=== PATIENT | male | born 1960 | race Caucasian/White ===

== ENCOUNTER 2020-09-05 09:47 | Inpatient (IN) | payer MEDICARE, OTHER, SELFPAY ==
[2020-09-05] VITALS (12 sets, daily range): BP systolic 110–157; BP diastolic 60–80; PULSE 56–100; RESP 16–18; TEMP 36.2–36.9; O2SAT 99–100; BMI 28.1; BMI 29.0
--- NOTE | 2020-09-05 10:32 | ED.GENADULT ---
HPI - General Adult General Chief complaint: Recheck/Abnormal Lab/Rx Stated complaint: ABNORMAL LABS Time Seen by Provider: 09/05/20 10:28 Source: patient Mode of arrival: ambulatory Limitations: no limitations History of Present Illness HPI narrative: 60 YEARS OLD MALE PRESENTED TO THE EMERGENCY DEPARTMENT. SHE HAS COMPLAINED OF WEAKNESS HE STATES THAT HE HAD THE OUTPATIENT BLOOD WORK IN THE CLINICALLY WAS TOLD THAT HE HAS A LOW H&H. DENIES ANY CHEST PAIN SHORTNESS OF BREATH FEVER ANY OTHER COMPLAINT Onset (ago): day(s) (2) Radiation: non-radiation Severity: moderate Severity scale (1-10): 1 Relieving factors: none Exacerbating factors: none Associated symptoms: denies other symptoms Treatments prior to arrival: none Related Data Home Medications Medication Instructions Recorded Confirmed aspirin 81 mg PO QAM 09/05/20 09/05/20 lisinopril 10 mg PO DAILY 09/05/20 09/05/20 omeprazole 20 mg PO Q2D 09/05/20 09/05/20 simvastatin 40 mg PO DAILY 09/05/20 09/05/20 Allergies Allergy/AdvReac Type Severity Reaction Status Date / Time No Known Allergies Allergy Verified 09/05/20 10:43 Review of Systems Review of Systems: Yes all other systems are reviewed and are negative Cardiovascular: Cardiovascular: Reports no additional cardiovascular complaints Respiratory: Respiratory: Reports no additional respiratory complaints Neurologic: Reports system reviewed and no additional complaints, except as documented PMFSH Past Medical History Attestation statement: The following information was validated with the patient. Medical History (Updated 09/05/20 @ 13:18 by JONA Jauregui) Bladder cancer Carotid stenosis CVA (cerebral vascular accident) High cholesterol HTN (hypertension) TIA (transient ischemic attack) Surgical History (Updated 09/05/20 @ 12:57 by JONA Jauregui) Hx of total cystectomy S/P carotid endarterectomy Family History Family History (Updated 09/05/20 @ 13:01 by JONA Jauregui) Father Dementia Mother Lung cancer Social History Social History Advance Directives: No Advance Directives Information Provided: Yes Physical Exam Vital Signs: Vital Signs: Vital Signs Temp Pulse Resp BP Pulse Ox 09/05/20 12:00 98.1 F 70 16 157/79 H 100 09/05/20 11:54 65 16 156/77 H 99 09/05/20 10:12 98.2 F 76 16 135/70 99 Body Mass Index 28.1 Const: General: cooperative and comfortable Orientation/consciousness: oriented to person and oriented to time Eyes: General: appearance normal, both eyes and all related structures Visual Campuzano: normal visual campuzano by confrontation Neck: Neck: Yes normal visual inspection and Yes full ROM Chest: Chest palpation & inspection: normal inspection of the chest and normal palpation of entire chest wall Resp: Effort & Inspection: normal respiratory effort and able to speak in complete sentences Cardio: Jugular venous distension: no JVD Palpation: normal PMI Rate: regular rate GI: Inspection: Yes normal to inspection and Yes other ( RECTAL EXAM, PERFORMED THE STOOLS ARE BROWN HEME-NEGATIVE) Skin: General skin exam: no rashes or lesions noted Neuro: General: oriented to person, oriented to time and gait normal Extrem: General: Yes normal to inspection and Yes full ROM Medical Decision Making Lab Data Result diagrams: 09/05/20 11:00 09/05/20 10:59 Labs: Lab Results 09/05/20 09/05/20 09/05/20 Range/Units 10:58 10:59 10:59 WBC (4.8-10.8) X10*3/uL RBC (4.60-5.80) X10*6/uL Hgb (14.0-18.0) g/dl Hct (42-52) % MCV (80-98) fL MCH (27.0-33.0) pg MCHC (31.0-36.0) g/dl RDW (11.0-16.0) % Plt Count (160-400) X10*3/uL MPV (9.4-12.4) fL Immature Gran % (Auto) (0.0-0.4) % Neut % (Auto) (45-73) % Lymph % (Auto) (20-40) % [place] % (Auto) (2-11) % Eos % (Auto) (0-4) % Baso % (Auto) (0-2) % Lymph # (Auto) (1.2-4.9) X10*3/uL [place] # (Auto) (0.1-1.2) X10*3/uL Eos # (Auto) (0.0-0.4) X10*3/uL Baso # (Auto) (0.0-0.2) X10*3/uL Abs Immat Gran (auto) (0.00-0.03) X10*3/uL Absolute Neuts (auto) (2.0-8.3) X10*3/uL Absolute Nucleated RBC (0.0-0.012) X10*3/uL Nucleated RBC % (auto) (0.0-0.2) /100WBC PT 12.0 (10.8-13.0) SEC INR 1.0 (0.9-1.1) APTT 30.4 (24.1-38.0) SEC Sodium 133 L (135-145) mmol/L Potassium 5.2 H (3.3-5.1) mmol/l Chloride 109 H (96-108) mmol/L Carbon Dioxide 16 L (22-29) mmol/L Anion Gap 13 (12-20) BUN 30 H (9-16) mg/dL Creatinine 1.39 (0.5-1.4) mg/dL Estim Creat Clear Calc 58.1 Estimated GFR 52 Random Glucose 76 (60-115) mg/dL Calcium 8.5 (8.4-10.2) mg/dL Ferritin 3 L (20-250) ng/mL Total Bilirubin 0.4 (0.0-1.0) mg/dL AST 24 (5-37) U/L ALT 15 (0-40) U/L Alkaline Phosphatase 62 (39-117) U/L Total Protein 6.8 (6.5-8.0) g/dL Albumin 4.2 (3.5-5.0) g/dL Vitamin B12 (200-900) pg/mL Folate (> or = 4.0) ng/mL Stool Occult Blood (NEG) Blood Type A Positive Antibody Screen NEGATIVE Crossmatch See Detail 09/05/20 09/05/20 09/05/20 Range/Units 10:59 11:00 11:43 WBC 4.1 L (4.8-10.8) X10*3/uL RBC 2.77 L (4.60-5.80) X10*6/uL Hgb 6.0 L* (14.0-18.0) g/dl Hct 19.8 L* (42-52) % MCV 71.5 L (80-98) fL MCH 21.7 L (27.0-33.0) pg MCHC 30.3 L (31.0-36.0) g/dl RDW 15.4 (11.0-16.0) % Plt Count 260 (160-400) X10*3/uL MPV 9.2 L (9.4-12.4) fL Immature Gran % (Auto) 0.5 H (0.0-0.4) % Neut % (Auto) 59.9 (45-73) % Lymph % (Auto) 25.7 (20-40) % [place] % (Auto) 9.0 (2-11) % Eos % (Auto) 4.4 H (0-4) % Baso % (Auto) 0.5 (0-2) % Lymph # (Auto) 1.1 L (1.2-4.9) X10*3/uL [place] # (Auto) 0.4 (0.1-1.2) X10*3/uL Eos # (Auto) 0.2 (0.0-0.4) X10*3/uL Baso # (Auto) 0.0 (0.0-0.2) X10*3/uL Abs Immat Gran (auto) 0.02 (0.00-0.03) X10*3/uL Absolute Neuts (auto) 2.5 (2.0-8.3) X10*3/uL Absolute Nucleated RBC 0.000 (0.0-0.012) X10*3/uL Nucleated RBC % (auto) 0.0 (0.0-0.2) /100WBC PT (10.8-13.0) SEC INR (0.9-1.1) APTT (24.1-38.0) SEC Sodium (135-145) mmol/L Potassium (3.3-5.1) mmol/l Chloride (96-108) mmol/L Carbon Dioxide (22-29) mmol/L Anion Gap (12-20) BUN (9-16) mg/dL Creatinine (0.5-1.4) mg/dL Estim Creat Clear Calc Estimated GFR Random Glucose (60-115) mg/dL Calcium (8.4-10.2) mg/dL Ferritin (20-250) ng/mL Total Bilirubin (0.0-1.0) mg/dL AST (5-37) U/L ALT (0-40) U/L Alkaline Phosphatase (39-117) U/L Total Protein (6.5-8.0) g/dL Albumin (3.5-5.0) g/dL Vitamin B12 296 (200-900) pg/mL Folate 10.5 (> or = 4.0) ng/mL Stool Occult Blood NEG (NEG) Blood Type Antibody Screen Crossmatch Critical Care Time Critical Care Time Critical Care Time: Yes Total Critical Care Time: 30 Attestation: blood transfusion X 2 Discharge Plan Discharge Clinical Impression: Anemia Qualifiers: Anemia type: iron deficiency Iron deficiency anemia type: unspecified iron deficiency Qualified Code(s): D50.9 - Iron deficiency anemia, unspecified Patient Disposition: Admitted As Inpatient Discharge Date/Time: 09/05/20 15:05
[2020-09-05 11:05] LABS: MANUAL DIFF FLAG NO
[2020-09-05 11:07] LABS: Basophils Percent Auto 0.5 % (0-2); Eosinophils Absolute Auto 0.2 X10*3/uL (0.0-0.4); Eosinophils Percent Auto 4.4 % (0-4); Imm Gran Abs Auto 0.02 X10*3/uL (0.00-0.03); Imm Gran Pct Auto 0.5 % (0.0-0.4); Lymphocytes Absolute Auto 1.1 X10*3/uL (1.2-4.9); Lymphocytes Percent Auto 25.7 % (20-40); Mean Corpuscular HGB Conc 30.3 g/dl (31.0-36.0); Mean Corpuscular Hemoglobin 21.7 pg (27.0-33.0); Mean Corpuscular Volume 71.5 fL (80-98); Mean Platelet Volume 9.2 fL (9.4-12.4); Monocytes Absolute Auto 0.4 X10*3/uL (0.1-1.2); Neutrophils Absolute Auto 2.5 X10*3/uL (2.0-8.3); Neutrophils Percent Auto 59.9 % (45-73); Platelet Count 260 X10*3/uL (160-400); Red Blood Count 2.77 X10*6/uL (4.60-5.80); Red Cell Distribution Width 15.4 % (11.0-16.0); White Blood Count 4.1 X10*3/uL (4.8-10.8)
[2020-09-05 11:11] LABS: Hematocrit 19.8 % (42-52)
[2020-09-05 11:16] LABS: Partial Thromboplastin Time 30.4 SEC (24.1-38.0)
--- NOTE | 2020-09-05 11:21 | XR_ITS ---
EXAMINATION: XR CHEST CLINICAL INFORMATION: Chest pain COMPARISON: CT abdomen and pelvis noncontrast 01/20/2016 TECHNIQUE: Portable upright AP view of the chest was obtained. FINDINGS: The lungs are clear. There is no pneumothorax, airspace consolidation, pleural reaction, or effusion. The heart is normal in size. The vascularity is normal. There is convexity right cardiophrenic angle consistent with areolar tissue on the CT abdomen 2016. The hilar contours and visualized bony structures are unremarkable. IMPRESSION: Unremarkable examination.
[2020-09-05 11:40] LABS: Alanine Aminotransferase 15 U/L (0-40); Albumin Level 4.2 g/dL (3.5-5.0); Alkaline Phosphatase 62 U/L (39-117); Anion Gap 13 (12-20); Aspartate Amino Transferase 24 U/L (5-37); Bilirubin Total 0.4 mg/dL (0.0-1.0); Blood Urea Nitrogen 30 mg/dL (9-16); Calcium 8.5 mg/dL (8.4-10.2); Carbon Dioxide 16 mmol/L (22-29); Chloride 109 mmol/L (96-108); Creatinine Clr Calc Pharmacy 58.1; Estimated Glomerular Filt Rate 52; Glucose Random 76 mg/dL (60-115); Potassium 5.2 mmol/l (3.3-5.1); Sodium 133 mmol/L (135-145); Total Protein 6.8 g/dL (6.5-8.0)
[2020-09-05 12:08] LABS: OBS Int Ctl Valid YES; OBS1 NEG (NEG)
--- NOTE | 2020-09-05 12:44 | P.HPIM_ITS ---
History of Present Illness Date of Service: 09/05/20 <JONA Jauregui - Last Filed: 09/05/20 18:27> Chief Complaint: abnormal labs <OJNA Jauregui - Last Filed: 09/05/20 18:27> this is a 60-year-old male who presented to the emergency department with abnormal labs. Patient had outpatient labs done and the results showed anemia so he was told to come to the emergency department for evaluation. H/ H was noted to be 6.0/19.8. The remainder of his labs were unremarkable. He denies any known history of anemia or history of blood transfusions. He denies hematemesis or rectal bleeding. He reports several weeks of generalized fatigue and dyspnea on exertion. Given symptomatic anemia the decision was made to admit him for further management. <JONA Jauregui - Last Filed: 09/05/20 18:27> Review of Systems Review of Systems: Yes all other systems are reviewed and are negative <JONA Jauregui - Last Filed: 09/05/20 18:27> Constitutional: Constitutional: Denies chills and Denies fever(s) <JONA Jauregui - Last Filed: 09/05/20 18:27> Cardiovascular: Cardiovascular: Denies chest pain and Reports dyspnea on exertion <JONA Jauregui - Last Filed: 09/05/20 18:27> Respiratory: Respiratory: Denies cough and Reports dyspnea on exertion <JONA Jauregui - Last Filed: 09/05/20 18:27> Gastrointestinal: Gastrointestinal: Denies abdominal pain <JONA Jauregui Last Filed: 09/05/20 18:27> [facility] Medical History: Medical History (Updated 09/05/20 @ 13:18 by JONA Jauregui) Bladder cancer Carotid stenosis CVA (cerebral vascular accident) High cholesterol HTN (hypertension) TIA (transient ischemic attack) <JONA Jauregui - Last Filed: 09/05/20 18:27> Family History: Family History (Updated 09/05/20 @ 13:01 by JONA Jauregui) Father Dementia Mother Lung cancer <JONA Jauregui Last Filed: 09/05/20 18:27> Surgical History: Surgical History (Updated 09/05/20 @ 12:57 by JONA Jauregui) Hx of total cystectomy S/P carotid endarterectomy <JONA Jauregui - Last Filed: 09/05/20 18:27> Social History: Social History Household Members Other:: Ex- Housing: House Do you presently have visiting nurse or other home services: No Smoking Status: Never smoker Second Hand Smoke Exposure: No Use of substances other than those prescribed or required for medical reasons: Yes Substance Use Type: Marijuana Substance Use Frequency: Occasionally Last Used Substance: Unknown Currently Displaying Signs/Symptoms of Drug Intoxication Withdrawal: No Any prior treatment program specific to substance use: No Have you been hit, kicked, punched, or otherwise hurt by someone within the past year? If so, by whom?: No Do you feel safe in your current relationship?: No Current Relationship Is there a partner from a previous relationship who is making you feel unsafe now?: No Are you made to feel afraid or neglected: No Advance Directives: No Advance Directives Information Provided: Yes Do you have thoughts of harming others: None Do you have a plan to hurt others: No Plan Recently lost weight without trying: No <JONA Jauregui - Last Filed: 09/05/20 18:27> Meds Allergies/Adverse reactions: Allergies Allergy/AdvReac Type Severity Reaction Status Date / Time No Known Allergies Allergy Verified 09/05/20 10:43 <JONA Jauregui - Last Filed: 09/05/20 18:27> Home medications: Home Medications Medication Instructions Recorded Confirmed Type aspirin 81 mg PO QAM 09/05/20 09/05/20 History lisinopril 10 mg PO DAILY 09/05/20 09/05/20 History omeprazole 20 mg PO Q2D 09/05/20 09/05/20 History simvastatin 40 mg PO DAILY 09/05/20 09/05/20 History <JONA Jauregui - Last Filed: 09/05/20 18:27> Physical Exam Vital Signs and Narrative: Vital Signs: Last Vital Signs Temp 98.1 F 09/05/20 12:00 Pulse 70 09/05/20 12:00 Resp 16 09/05/20 12:00 BP 157/79 H 09/05/20 12:00 Pulse Ox 100 09/05/20 12:00 Body Mass Index 28.1 <JONA Jauregui - Last Filed: 09/05/20 18:27> Const: Nutritional Appearance: well nourished <JONA Jauregui - Last Filed: 09/05/20 18:27> Orientation/consciousness: patient oriented x3 <JONA Jauregui - Last Filed: 09/05/20 18:27> HENMT: Head: Yes normocephalic and Yes atraumatic <JONA Jauregui - Last Filed: 09/05/20 18:27> Eyes: Sclerae: sclerae normal <JONA Jauregui - Last Filed: 09/05/20 18:27> Chest: Chest palpation & inspection: normal inspection of the chest <JONA Jauregui - Last Filed: 09/05/20 18:27> Resp: Effort & Inspection: normal respiratory effort and no respiratory distress <JONA Jauregui - Last Filed: 09/05/20 18:27> Auscultation: clear to auscultation bilaterally <JONA Jauregui - Last Filed: 09/05/20 18:27> Cardio: Rate: regular rate <JONA Jauregui - Last Filed: 09/05/20 18:27> Rhythm: regular rhythm <JONA Jauregui - Last Filed: 09/05/20 18:27> GI: Palpation (GI): Soft to palpation and nontender <JONA Jauregui - Last Filed: 09/05/20 18:27> Skin: General skin exam: no rashes or lesions noted <JONA Jauregui - Last Filed: 09/05/20 18:27> Neuro: General: patient oriented x3 <JONA Jauregui Last Filed: 09/05/20 18:27> Cranial nerves: Yes CN's II-XII intact bilaterally and Yes Bilaterally intact EOM present <JONA Jauregui - Last Filed: 09/05/20 18:27> Extrem: General: Yes normal to inspection <JONA Jauregui - Last Filed: 09/05/20 18:27> Results Labs Labs: Laboratory Tests 09/05/20 09/05/20 09/05/20 10:58 10:59 10:59 WBC RBC Hgb Hct MCV MCH MCHC RDW Plt Count MPV Immature Gran % (Auto) Neut % (Auto) Lymph % (Auto) [place] % (Auto) Eos % (Auto) Baso % (Auto) Lymph # (Auto) [place] # (Auto) Eos # (Auto) Baso # (Auto) Abs Immat Gran (auto) Absolute Neuts (auto) Absolute Nucleated RBC Nucleated RBC % (auto) PT 12.0 INR 1.0 APTT 30.4 Sodium 133 L Potassium 5.2 H Chloride 109 H Carbon Dioxide 16 L Anion Gap 13 BUN 30 H Creatinine 1.39 Estim Creat Clear Calc 58.1 Estimated GFR 52 Random Glucose 76 Calcium 8.5 Total Bilirubin 0.4 AST 24 ALT 15 Alkaline Phosphatase 62 Total Protein 6.8 Albumin 4.2 Stool Occult Blood Blood Type A Positive Antibody Screen NEGATIVE Crossmatch See Detail 09/05/20 09/05/20 11:00 11:43 WBC 4.1 L RBC 2.77 L Hgb 6.0 L* Hct 19.8 L* MCV 71.5 L MCH 21.7 L MCHC 30.3 L RDW 15.4 Plt Count 260 MPV 9.2 L Immature Gran % (Auto) 0.5 H Neut % (Auto) 59.9 Lymph % (Auto) 25.7 [place] % (Auto) 9.0 Eos % (Auto) 4.4 H Baso % (Auto) 0.5 Lymph # (Auto) 1.1 L [place] # (Auto) 0.4 Eos # (Auto) 0.2 Baso # (Auto) 0.0 Abs Immat Gran (auto) 0.02 Absolute Neuts (auto) 2.5 Absolute Nucleated RBC 0.000 Nucleated RBC % (auto) 0.0 PT INR APTT Sodium Potassium Chloride Carbon Dioxide Anion Gap BUN Creatinine Estim Creat Clear Calc Estimated GFR Random Glucose Calcium Total Bilirubin AST ALT Alkaline Phosphatase Total Protein Albumin Stool Occult Blood NEG Blood Type Antibody Screen Crossmatch <JONA Jauregui - Last Filed: 09/05/20 18:27> Assessment and Plan (1) Symptomatic anemia: Status: Acute <JONA Jauregui - Last Filed: 09/05/20 18:27> this 60-year-old male with history of hypertension, hyperlipidemia, bladder cancer status post total cystectomy who presents to the emergency department with abnormal labs found to have anemia symptomatic anemia H/H 6.9/24.3 on 08/29/[address] [facility] no active bleeding, occult blood negative - 2 units of RBCs ordered by ED - follow CBC - check iron studies h/o cva hold asa, continue statin HTN -Continue lisinopril DVT ppx - boots Code status - full This case was discussed with Dr. Buckley <JONA Jauregui - Last Filed: 09/05/20 18:27>
[2020-09-05 13:07] LABS: Ferritin 3 ng/mL (20-250)
[2020-09-05 13:28] LABS: Folate 10.5 ng/mL (> or = 4.0); Vitamin B12 296 pg/mL (200-900)
[2020-09-05] MEDS: 0.9 % Sodium Chloride Flush 3 ML SYRINGE IVFLUSH (16:04)
--- NOTE | 2020-09-05 17:08 | PC.NURSE ---
PT ARRIVED TO THE UNIT FROM ED AT 1530. PT ADMITTED FOR SYMPTOMATIC ANEMIA. 2 UNITS PRBC ORDERED. CONSENT FOR BLOOD OBTAINED. FIRST UNIT OF PRBC CURRENTLY INFUSING. PT IS A+OX4. CALM, COOPERATIVE. NO SOB, NO DIZZINESS AT THIS TIME. LUNG SOUNDS CLEAR. PT ON ROOM AIR. +BS X4Q. PT HAS A HISTORY OF BLADDER CANCER AND SELF-CATHETERIZES. #14 HUNGARIAN CATH KIT LEFT AT BEDSIDE (OK'D BY ). PT DENIES PAIN AT THIS TIME. INDEPENDENT WITH AMBULATION/TRANSFERS. STEADY ON FEET. SEQUENTIALS APPLIED TO BILATERAL LOWER EXTREMITIES. LEFT FOOT NOTED TO HAVE 2+ EDEMA; PT STATES THIS IS NOT A NEW FINDING AND THAT HIS LEFT FOOT IS ALWAYS SWOLLEN . PT ORIENTED TO UNIT. CALL GODFREY IN REACH. PT WITH NO QUESTIONS OR CONCERNS AT THIS TIME. WILL CONTINUE TO MONITOR.
[2020-09-05] MEDS: Flu Vacc QS2020-21(6mos up)/PF 0.5 ML SYRINGE IM (18:06)
[2020-09-05] MEDS: Atorvastatin Calcium 20 MG TABLET PO (20:49)
[2020-09-06] VITALS (9 sets, daily range): BP systolic 110–141; BP diastolic 60–73; PULSE 56–65; RESP 16–20; TEMP 36–37; O2SAT 98–99; BMI 28.3
[2020-09-06] MEDS: 0.9 % Sodium Chloride Flush 3 ML SYRINGE IVFLUSH ×3 (05:51→16:42)
[2020-09-06 06:52] LABS: Hematocrit 25.5 % (42-52); Hemoglobin 7.9 g/dl (14.0-18.0); Mean Corpuscular Hemoglobin 23.3 pg (27.0-33.0); Mean Corpuscular Volume 75.2 fL (80-98); Platelet Count 290 X10*3/uL (160-400); Red Blood Count 3.39 X10*6/uL (4.60-5.80); Red Cell Distribution Width 18.1 % (11.0-16.0)
[2020-09-06 07:18] LABS: Anion Gap 13 (12-20); Blood Urea Nitrogen 28 mg/dL (9-16); Calcium 8.6 mg/dL (8.4-10.2); Carbon Dioxide 19 mmol/L (22-29); Chloride 109 mmol/L (96-108); Creatinine Clr Calc Pharmacy 64.3; Estimated Glomerular Filt Rate 58; Glucose Random 89 mg/dL (60-115); Potassium 5.1 mmol/l (3.3-5.1); Sodium 136 mmol/L (135-145)
--- NOTE | 2020-09-06 11:21 | P.CNGI_ITS ---
History of Present Illness Data of Consult Service Date: 09/06/20 Requesting physician: Neeta Buckley Primary Care Provider: Unknown Physician HPI Reason for consult: Anemia 60-year-old male who I am asked to see for assessment for iorn def anemia. He had routine labs and HGB was found to be 6 g/dl. He did admit to lethargy and fatigue but denied lightheadedness. He does endorse intermittent dark stools over the last one month or so. denies fresh rectal bleeding, no hemturia or epistaxis, heartburn, nausea or vomiting. appetite normal, weight stable, no abdmonial pain-no nsaid use except for baby aspirin due to hx of cervical art stenosis. HE has been receiving PRBC trnasfusion--feels better today Of note he has PET-CT pending this week for Ix of bladder and chest nodules given hx of bladder cancer s/p bladder cystectomy and reconstruction with small bowel 2013 He said he had colonoscopy end of last year at [facility] with small polyp removed otherwise normal study. Review of Systems Review of Systems: Yes all other systems are reviewed and are negative Neurologic: Reports system reviewed and no additional complaints, except as documented PMFSH Past Medical History Medical History Bladder cancer Carotid stenosis CVA (cerebral vascular accident) High cholesterol HTN (hypertension) TIA (transient ischemic attack) Functional capacity: independent ambulation Family History Family History Father Dementia Mother Lung cancer Surgical History Surgical History Hx of total cystectomy S/P carotid endarterectomy Social History Social History Household Members Other:: Ex- Housing: House Do you presently have visiting nurse or other home services: No Smoking Status: Never smoker Second Hand Smoke Exposure: No Use of substances other than those prescribed or required for medical reasons: Yes Substance Use Type: Marijuana Substance Use Frequency: Occasionally Last Used Substance: Unknown Currently Displaying Signs/Symptoms of Drug Intoxication Withdrawal: No Any prior treatment program specific to substance use: No Have you been hit, kicked, punched, or otherwise hurt by someone within the past year? If so, by whom?: No Do you feel safe in your current relationship?: No Current Relationship Is there a partner from a previous relationship who is making you feel unsafe now?: No Are you made to feel afraid or neglected: No Advance Directives: No Advance Directives Information Provided: Yes Do you have thoughts of harming others: None Do you have a plan to hurt others: No Plan Recently lost weight without trying: No service: Yes Current occupational status: retired [employer] Allergies Allergy/AdvReac Type Severity Reaction Status Date / Time No Known Allergies Allergy Verified 09/05/20 10:43 Home Medications Medication Instructions Recorded Confirmed Type lisinopril 10 mg PO DAILY 09/05/20 09/05/20 History omeprazole 20 mg PO Q2D 09/05/20 09/05/20 History simvastatin 40 mg PO DAILY 09/05/20 09/05/20 History Physical Exam Vital Signs: Vital Signs: Vital Signs Temp Pulse Resp BP Pulse Ox 09/06/20 11:16 97.5 F 64 20 116/67 98 09/06/20 07:45 97.6 F 58 20 127/60 98 09/06/20 03:30 98.5 F 65 18 129/63 98 09/06/20 00:00 98.6 F 63 18 117/61 99 09/05/20 21:57 98.4 F 60 18 111/71 09/05/20 18:43 97.4 F 61 18 141/63 H 09/05/20 18:28 97.9 F 70 18 149/67 H 09/05/20 17:50 97.9 F 65 18 147/80 H 09/05/20 16:52 97.2 F 56 16 155/74 H 09/05/20 16:30 97.2 F 62 16 143/66 H 09/05/20 15:50 97.6 F 100 18 110/80 100 09/05/20 15:40 97.4 F 61 18 139/65 100 09/05/20 14:16 56 16 135/60 99 09/05/20 12:00 98.1 F 70 16 157/79 H 100 09/05/20 11:54 65 16 156/77 H 99 Body Mass Index 28.3 Const: General: cooperative and comfortable Nutritional Appearance: well nourished Orientation/consciousness: oriented to person, oriented to time and patient oriented x3 HENMT: Head: Yes normocephalic and Yes atraumatic Eyes: General: appearance normal, both eyes and all related structures Visual Watson: normal visual watson by confrontation Sclerae: sclerae normal Neck: Neck: Yes normal visual inspection and Yes full ROM Chest: Chest palpation & inspection: normal inspection of the chest and normal palpation of entire chest wall Resp: Effort & Inspection: normal respiratory effort, able to speak in complete sentences and no respiratory distress Auscultation: clear to auscultation bilaterally Cardio: Jugular venous distension: no JVD Palpation: normal PMI Rate: regular rate Rhythm: regular rhythm GI: Inspection: Yes normal to inspection Palpation (GI): Soft to palpation and nontender Skin: General skin exam: no rashes or lesions noted Neuro: General: oriented to person, oriented to time and patient oriented x3 Cranial nerves: Yes CN's II-XII intact bilaterally and Yes Bilaterally intact EOM present Extrem: General: Yes normal to inspection and Yes full ROM Results Labs CBC & Chem 7: 09/06/20 15:55 09/06/20 05:45 Labs: Short CBC 09/06/20 Range/Units 05:45 WBC 9.0 (4.8-10.8) X10*3/uL Hgb 7.9 L D (14.0-18.0) g/dl Hct 25.5 L D (42-52) % Plt Count 290 (160-400) X10*3/uL BMP 09/05/20 09/06/20 10:59 05:45 Sodium 133 L 136 Potassium 5.2 H 5.1 Chloride 109 H 109 H Carbon Dioxide 16 L 19 L BUN 30 H 28 H Creatinine 1.39 1.26 Calcium 8.5 8.6 Liver Function 09/05/20 Range/Units 10:59 Total Bilirubin 0.4 (0.0-1.0) mg/dL AST 24 (5-37) U/L ALT 15 (0-40) U/L Alkaline Phosphatase 62 (39-117) U/L Albumin 4.2 (3.5-5.0) g/dL Assessment and Plan (1) Symptomatic anemia: Status: Acute 1/ Iron deficiency anemia with intermittent melenic stools per history, hx of chronic aspirin use, but on PPI at baseline, appropriate increment in HGB with PRBC. He had colonoscopy recently highest likelihood of pathology in upper GI tract, ddx; PUD, gastritis, neoplasia, AVM, esophagitis PLAN: 1/ discussed in patient EGD +/- colonoscopy vs early o/p endoscopy or deferring to her GI at [facility], he wants to get all his lung testing and CT-PET done first which is this week but would like endoscopy done at [place] as o/p 2/ Will touch base with my office on Tuesday, and see if can get EGD +/- colonoscopy this Tuesday or following week, but he would like to go home today, advised to come back MELIZA if any change, worsening melena
--- NOTE | 2020-09-06 11:29 | PM.DS ---
DS: Providers Provider Date of admission: 09/05/20 12:43 Primary care physician: Unknown Physician Consults: 09/06/20 07:57 Consult to Gastroenterology Routine Consulting Provider: Liliana Hansen Reason for consultation: Iron deficiency anemia Has provider been notified: No DS: Diagnosis Discharge Diagnosis (1) Symptomatic anemia: Status: Acute DS: Summary Hospital Course Hospital Course: 60-year-old male who presented to the emergency department with abnormal labs. Patient had outpatient labs done and the results showed anemia so he was told to come to the emergency department for evaluation. H/ H was noted to be 6.0/19.8. The remainder of his labs were unremarkable. He denies any known history of anemia or history of blood transfusions. He denies hematemesis or rectal bleeding. He reports several weeks of generalized fatigue and dyspnea on exertion. Given symptomatic anemia the decision was made to admit him for further management. Hospital course: He was transfused 3 units of RBC with improved in hemoglobin. Labs shows low iron store with low MCV and therefore iron deficiency anemi yet no source of bleed. His symptoms have resolved. Advised to stop aspirin. GI recommends outpatient work up with EGD and Colonoscopy which will be done within a week. Time Spent with Patient Time attestation: Total time spent providing and/or coordinating discharge services: Physical Exam Vital Signs: Vital Signs: Vital Signs Temp Pulse Resp BP Pulse Ox 09/06/20 11:16 97.5 F 64 20 116/67 98 09/06/20 07:45 97.6 F 58 20 127/60 98 09/06/20 03:30 98.5 F 65 18 129/63 98 09/06/20 00:00 98.6 F 63 18 117/61 99 09/05/20 21:57 98.4 F 60 18 111/71 09/05/20 18:43 97.4 F 61 18 141/63 H 09/05/20 18:28 97.9 F 70 18 149/67 H 09/05/20 17:50 97.9 F 65 18 147/80 H 09/05/20 16:52 97.2 F 56 16 155/74 H 09/05/20 16:30 97.2 F 62 16 143/66 H 09/05/20 15:50 97.6 F 100 18 110/80 100 09/05/20 15:40 97.4 F 61 18 139/65 100 09/05/20 14:16 56 16 135/60 99 09/05/20 12:00 98.1 F 70 16 157/79 H 100 09/05/20 11:54 65 16 156/77 H 99 Body Mass Index 28.3 Constitutional Awake and Alert, No apparent distress Neck Supple, No lymphadenopathy Cardiovascular RRR, No M/R/G, S1 S2, No S3 S4, No pedal edema Respiratory Lungs clear, No respiratory distress Gastrointestinal Non tender, Non-distended Skin No rash Neurological Alert & oriented x3 Psychological Appropriate affect DS: Data Data Completed and Pending Labs on day of discharge: Labs from last 24 hours 09/06/20 09/06/20 09/05/20 05:45 05:45 11:43 WBC 9.0 RBC 3.39 L D Hgb 7.9 L D Hct 25.5 L D MCV 75.2 L MCH 23.3 L MCHC 31.0 RDW 18.1 H Plt Count 290 MPV 10.0 Absolute Nucleated RBC 0.000 Nucleated RBC % (auto) 0.0 Sodium 136 Potassium 5.1 Chloride 109 H Carbon Dioxide 19 L Anion Gap 13 BUN 28 H Creatinine 1.26 Estim Creat Clear Calc 64.3 Estimated GFR 58 Random Glucose 89 Calcium 8.6 Ferritin Total Bilirubin AST ALT Alkaline Phosphatase Total Protein Albumin Vitamin B12 Folate Stool Occult Blood NEG Blood Type Antibody Screen Crossmatch 09/05/20 09/05/20 09/05/20 10:59 10:59 10:59 WBC RBC Hgb Hct MCV MCH MCHC RDW Plt Count MPV Absolute Nucleated RBC Nucleated RBC % (auto) Sodium 133 L Potassium 5.2 H Chloride 109 H Carbon Dioxide 16 L Anion Gap 13 BUN 30 H Creatinine 1.39 Estim Creat Clear Calc 58.1 Estimated GFR 52 Random Glucose 76 Calcium 8.5 Ferritin 3 L Total Bilirubin 0.4 AST 24 ALT 15 Alkaline Phosphatase 62 Total Protein 6.8 Albumin 4.2 Vitamin B12 296 Folate 10.5 Stool Occult Blood Blood Type A Positive Antibody Screen NEGATIVE Crossmatch See Detail Discharge Plan Discharge Anticipated Discharge Date/Time: 09/06/20 11:44 Patient Disposition: Home, Self-Care Referrals: Physician,Unknown [Primary Care Provider] - Discharge Medications: New omeprazole 40 mg capsule,delayed release(DR/EC) 40 mg PO DAILY 56 Days Qty: 56 RF: 0 ferrous sulfate 325 mg (65 mg iron) tablet 325 mg PO BID Qty: 30 RF: 0 Continued simvastatin 40 mg tablet 40 mg PO DAILY RF: 0 lisinopril 10 mg tablet 10 mg PO DAILY RF: 0 omeprazole 20 mg capsule,delayed release(DR/EC) 20 mg PO Q2D RF: 0 Discontinued aspirin 81 mg tablet,delayed release (DR/EC) 81 mg PO QAM RF: 0 Discharge Orders: Discharge Order (Routine); Ordered 09/06/20 Ordered By: Bony Haskins Diet: advance to your usual diet Activity on Discharge: As tolerated Discharge Date/Time: 09/06/20 17:38 Visit Report Forms: Patient Portal Discharge page Care Plan Goals: To fiure out why you have anemia Health Concerns: Bleeding from unknown source Plan of Treatment: You will need to have colonoscopy and EGD, take Iron and priolosec as recommended.
[2020-09-06 12:10] LABS: Iron 422 mcg/dL (45-160); Total Iron Binding Capacity < 439 mcg/dL (228-428); Unsaturated Iron Binding < 17 ug/dL
[2020-09-06 16:13] LABS: Hematocrit 28.1 % (42-52); Mean Corpuscular Hemoglobin 24.5 pg (27.0-33.0); Mean Corpuscular Volume 76.6 fL (80-98); Mean Platelet Volume 9.4 fL (9.4-12.4); Platelet Count 267 X10*3/uL (160-400); Red Blood Count 3.67 X10*6/uL (4.60-5.80); Red Cell Distribution Width 18.7 % (11.0-16.0); White Blood Count 5.9 X10*3/uL (4.8-10.8)
--- NOTE | 2020-09-06 16:21 | MHC.CM.PN ---
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 PT DENIES HAVING ANY SERVICES OR DME OTHER THAN CATHETER SUPPLIES THAT ARE DELIVERED TO HIM. PT REPORTS HE DID HAVE A PCP THAT RETIRED SO IS UNSURE WHO HIS NEW PROVIDER WILL BE BUT HE GOES TO [facility]. 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 CURRENT DC PLAN IS HOME WITH NO SERVICES PT WILL ARRANGE RIDE AT DC
== END 2020-09-06 17:38 | disposition home or self-care (01) | DRG 812 ==
LOC: HO.ED 11:45 → HO.IMC 13:10
PROVIDERS: Physician Assistant Medical; Admitting Provider Internal Medicine; Emergency Provider Emergency Medicine; Visit Provider Internal Medicine
DX: D50.9 Iron deficiency anemia, unspecified (principal); E78.00 Pure hypercholesterolemia, unspecified; Z23 Encounter for immunization; Z85.51 Personal history of malignant neoplasm of bladder; Z86.73 Personal history of transient ischemic attack (TIA), and cerebral infarction without residual deficits; Z79.899 Other long term (current) drug therapy
CPT/HCPCS: 36415; 71045; 80048; 80053; 82272; 82607; 82728; 82746; 83540; 85025; 85027; 85610; 85730; 86850; 86900; 86901; 86920; 86923; 90686; 99284; 99291; J2405; P9016

== ENCOUNTER 2020-09-11 10:32 | Day surgery (SDC) | payer MEDICARE, OTHER, SELFPAY ==
--- NOTE | 2020-09-10 13:19 | HO.ANESPROP2 ---
HPI - Anesthesia Eval Consult details Narrative: 60yo M for EGD and Colonoscopy [facility] [place]20 with acute symptomatic anemia. S/p 3 units PRBC. PMFSH Past Medical History Medical History Bladder cancer Carotid stenosis CVA (cerebral vascular accident) High cholesterol HTN (hypertension) TIA (transient ischemic attack) Family History Family History Father Dementia Mother Lung cancer Surgical History Surgical History Hx of total cystectomy S/P carotid endarterectomy Social History Social History Housing: House Smoking Status: Never smoker Second Hand Smoke Exposure: No Use of substances other than those prescribed or required for medical reasons: No Substance Use Type: Marijuana Advance Directives: Yes Advance Directives Information Provided: Yes Advance Directives Date on File: 09/11/20 Recently lost weight without trying: No service: Yes Current occupational status: retired [employer] Allergies Allergy/AdvReac Type Severity Reaction Status Date / Time No Known Allergies Allergy Verified 09/05/20 10:43 Home Medications Medication Instructions Recorded Confirmed Type lisinopril 10 mg PO DAILY 09/05/20 09/05/20 History omeprazole 20 mg PO Q2D 09/05/20 09/05/20 History simvastatin 40 mg PO DAILY 09/05/20 09/05/20 History Exam Exam Date and Time: September 10, 2020 1319 Assessment and Plan Assessment Anesthesia Assessment: Chart Reviewed
[2020-09-11 10:38] VITALS: BMI 27.3
--- NOTE | 2020-09-11 10:45 | HO.ANESPROP2 ---
[facility] Past Medical History Medical History Bladder cancer Carotid stenosis CVA (cerebral vascular accident) High cholesterol HTN (hypertension) TIA (transient ischemic attack) Family History Family History Father Dementia Mother Lung cancer Surgical History Surgical History Hx of total cystectomy S/P carotid endarterectomy Social History Social History Housing: House Smoking Status: Never smoker Second Hand Smoke Exposure: No Use of substances other than those prescribed or required for medical reasons: No Substance Use Type: Marijuana Advance Directives: Yes Advance Directives Information Provided: Yes Advance Directives Date on File: 09/11/20 Recently lost weight without trying: No service: Yes Current occupational status: retired Meds Allergies Allergy/AdvReac Type Severity Reaction Status Date / Time No Known Allergies Allergy Verified 09/05/20 10:43 Home Medications Medication Instructions Recorded Confirmed Type lisinopril 10 mg PO DAILY 09/05/20 09/05/20 History omeprazole 20 mg PO Q2D 09/05/20 09/05/20 History simvastatin 40 mg PO DAILY 09/05/20 09/05/20 History Exam Exam Date and Time: September 11, 2020 1045 Height,Weight and Vital Signs: Height 5 ft 8 in Weight 81.647 kg Assessment and Plan Final Anesthetic Review NPO: Yes ASA Class: IV Final Preanesthetic Review: No Changes in Pt Med Stat, Meds/Allgs Chart Reviewed, Consent Obtained/Reviewed and Anes Risks/Benef Reviewed Patient Risk: High Procedure Risk: Low Anesthetic Plan Anesthetic Plan: MAC: Disposition: Standard PACU
[2020-09-11 10:46] VITALS: BP 105/76; PULSE 71; RESP 18; TEMP 36.4; O2SAT 98
[2020-09-11] MEDS: Lactated Ringers 1,000 ML 100 ML IVCONT (11:06)
--- NOTE | 2020-09-11 11:22 | MHC.SHP ---
Pre-Procedural Eval Section A The patient is an INPATIENT: No The History & Physical has been completed within 30 days and I have reviewed it.: Yes Section B Chief Complaint: anemia Allergies: Allergies Allergy/AdvReac Type Severity Reaction Status Date / Time No Known Allergies Allergy Verified 09/05/20 10:43 Plan Diagnosis/Plan: Unchanged Patient has been examined and remains a candidate for the planned procedure
--- NOTE | 2020-09-11 11:23 | PM.OP ---
Brief Operative Note Date of procedure: 09/11/20 Pre-op diagnosis: irond ef anemia Post-op diagnosis: same Procedure: see op note Surgeon: Liliana Hansen MD Anesthesia: MAC Estimated blood loss (mL): 0 Condition: stable Disposition: PACU
--- NOTE | 2020-09-11 11:23 | W.PM.OPN ---
Operative Note Operative Note Narrative: Operative Information Procedure Description: EGD, Colonoscopy FLEXIBLE TRANSORAL UPPER GASTROINTESTINAL ENDOSCOPY AND COLONOSCOPY PROCEDURE NOTE UPPER ENDOSCOPY Consent: Indications for the procedure and potential complications of bleeding, perforation, reaction to medications and missed diagnosis were discussed with the patient and informed consent was obtained. Instrument: Olympus GIF H 190 J mid size upper endoscope Monitoring: Vital signs and clinical assessment, continuous EKG monitoring, Pulse oximetry, Carbon Dioxide monitoring and blood pressure monitoring were done throughout the procedure. Procedure: The patient was placed in the left lateral decubitis position and pre-procedure medications were administered and a bite block was placed. The endoscope was inserted into the mouth and advanced under direct vision to the third part of duodenum. A careful inspection was made as the upper endoscope was withdrawn including a retroflexed examination of the proximal stomach; Findings and interventions are described below. Findings: Larynx:normal Esophagus: GE junction at 40 cm, diaphragm hiatus at 40 cm, mild esophagitis at GEJ with irregular Z line, bx taken Stomach: Normal mucosa except for an erythematous area in the fundus which was biopsied. Grade 2 flap valve on retroflexed examination of the cardia. Duodenum: Normal bulb and descending duodenum, bx taken no blood seen, no ulcers or masses Intervention: Biopsies as noted above COLONOSCOPY Instrument: Olympus variable stiffness pediatric scope 190L Colonoscopy Monitoring: Vital signs and clinical assessment, continuous EKG monitoring, Pulse oximetry, Carbon Dioxide monitoring and blood pressure monitoring were done throughout the procedure. Colon withdrawal time was 10 minutes. Procedure: The patient was placed in the left lateral decubitis position and pre-procedure medications were administered. After a digital rectal examination of the ano-rectum, the video colonoscope was inserted into the rectum and advanced through the colon to the cecum/TI. The colonoscope was slowly withdrawn in a retrograde panoramic fashion and the colon mucosa was carefully examined including a retroflexed view of the rectum. Findings and interventions are described below. Procedure Difficulty:easy Findings: normal stool seen in areas, no bleeding or melena few scattered small diverticula thru out the colon Terminal Ileum-normal Cecum: slightly granular with nodularity, bx taken Ascending Colon: normal Transverse Colon -normal Descending Colon:normal Sigmoid Colon: normal Rectum: Retroflexion with moderate sized internal hemorrhoids, grade I Anorectum - normal Colon preparation: [place] Bowel Preparation Scale Right colon; 3 Transverse colon: 2 Left colon; 2 (0 = Unprepared colon segment with mucosa not seen due to solid stool that cannot be cleared. 1 = Portion of mucosa of the colon segment seen, but other areas of the colon segment not well seen due to staining, residual stool and/or opaque liquid. 2 = Minor amount of residual staining, small fragments of stool and/or opaque liquid, but mucosa of colon segment seen well. 3 = Entire mucosa of colon segment seen well with no residual staining, small fragments of stool or opaque liquid) Impression and Post Procedure Diagnosis: Endoscopy Findings: focal gastritis esophagitis Colonoscopy Findings: internal hemorrhoids diverticular disease Plan: Await Pathology results Repeat Colonoscopy in 5 years or earlier if clinically indicated High fiber diet leaflet avoid straining at stool, epsom salts and sitz bath prn, anusol supps or cream prn video capsule study of small bowel Above findings were reviewed with the patient and relevant handouts were provided if indicated.
[2020-09-11 12:12] VITALS: BP 92/47; PULSE 65; RESP 18; TEMP 35.9; O2SAT 96
[2020-09-11 12:27] VITALS: BP 97/57; PULSE 57; RESP 15; TEMP 35.9; O2SAT 99
--- NOTE | 2020-09-11 12:56 | HO.POSTANES ---
Post Anesthesia Evaluation Post Anesthesia Evaluation Vital Signs: Vital Signs Temp Pulse Resp BP Pulse Ox 09/11/20 12:27 96.6 F L 57 15 97/57 L 99 09/11/20 12:12 96.6 F L 65 18 92/47 L 96 09/11/20 10:46 97.5 F 71 18 105/76 98 Anesthesia: Monitored Mental Status: Awake Pain Control: Satisfactory Nausea/Vomiting: None Hydration: Adequate Anesthesia-Related Issues: No Anes. Related Issues
== END 2020-09-11 13:14 | disposition home or self-care (01) ==
PROVIDERS: Visit Provider Internal Medicine Gastroenterology
PROC: (CPT 45380; principal; 2020-09-11 11:50)
DX: D64.9 Anemia, unspecified (principal); K57.30 Diverticulosis of large intestine without perforation or abscess without bleeding; K64.0 First degree hemorrhoids; K29.70 Gastritis, unspecified, without bleeding; K20.90 Esophagitis, unspecified without bleeding; K44.9 Diaphragmatic hernia without obstruction or gangrene; E78.00 Pure hypercholesterolemia, unspecified; Z85.51 Personal history of malignant neoplasm of bladder; Z86.73 Personal history of transient ischemic attack (TIA), and cerebral infarction without residual deficits; I10 Essential (primary) hypertension; Z79.899 Other long term (current) drug therapy
CPT/HCPCS: 45380; 43239; 88305; 88342

== ENCOUNTER → 2020-09-26 07:57 | Outpatient (BNVA) | payer MEDICARE, SELFPAY | PROVIDERS: Visit Provider Internal Medicine Gastroenterology | DX: Z76.89 Persons encountering health services in other specified circumstances (principal) | CPT/HCPCS: 91110 ==

== ENCOUNTER → 2020-10-27 14:01 | Outpatient (BNVA) | payer MEDICARE, SELFPAY | PROVIDERS: Visit Provider Surgery | DX: K40.90 Unilateral inguinal hernia, without obstruction or gangrene, not specified as recurrent (principal) | CPT/HCPCS: 99202 ==

== ENCOUNTER 2020-11-25 08:32 | Day surgery (SDC) | payer MEDICARE, SELFPAY ==
[2020-11-17 10:44] VITALS: BMI 27.6
[2020-11-24 09:28] VITALS: BMI 27.6
--- NOTE | 2020-11-24 10:44 | P.CONAN_ITS ---
Documented by User: Tika Correa 11/24/20 10:52 HPI - Anesthesia Eval Consult details Narrative: 60yo M for Hernia Repair Inguinal Laproscopic with mesh s/p EGD and Colonosocpy 09/11/20, no issue [facility] Past Medical History Medical History Bladder cancer Carotid stenosis CVA (cerebral vascular accident) High cholesterol HTN (hypertension) Lab test negative for COVID-19 virus Left inguinal hernia Lung nodules TIA (transient ischemic attack) Family History Family History Father Dementia Mother Lung cancer Surgical History Surgical History H/O colonoscopy History of esophagogastroduodenoscopy (EGD) Hx of total cystectomy S/P carotid endarterectomy Social History Social History Housing: House Smoking Status: Never smoker Second Hand Smoke Exposure: No Use of substances other than those prescribed or required for medical reasons: Yes Substance Use Type: Marijuana Advance Directives: Yes Advance Directives Information Provided: No Advance Directives on File: Yes Advance Directives Date on File: 09/11/20 service: Yes Current occupational status: retired Meds Allergies Allergy/AdvReac Type Severity Reaction Status Date / Time No Known Allergies Allergy Verified 11/25/20 08:50 Home Medications Medication Instructions Recorded Confirmed Type lisinopril 10 mg PO DAILY 09/05/20 11/17/20 History omeprazole 20 mg PO Q2D 09/05/20 09/05/20 History simvastatin 40 mg PO DAILY 09/05/20 11/17/20 History aspirin 1 tab PO QAM 11/17/20 11/17/20 History Exam Exam Date and Time: November 24, 2020 1044 Height,Weight and Vital Signs: Height 5 ft 8 in Weight 82.554 kg Pertinent Lab Results Pertinent Lab Results: Laboratory Tests 09/06/20 09/06/20 05:45 15:55 WBC 5.9 Hgb 9.0 L Hct 28.1 L Plt Count 267 Sodium 136 Potassium 5.1 Chloride 109 H Carbon Dioxide 19 L BUN 28 H Creatinine 1.26 Assessment and Plan Assessment Anesthesia Assessment: Chart Reviewed Documented by User: Lupe Boswell 11/25/20 10:20 PMFSH Past Medical History Medical History Bladder cancer Carotid stenosis CVA (cerebral vascular accident) High cholesterol HTN (hypertension) Lab test negative for COVID-19 virus Left inguinal hernia Lung nodules TIA (transient ischemic attack) Family History Family History Father Dementia Mother Lung cancer Family history of problems with anesthesia: No Surgical History Surgical History H/O colonoscopy History of esophagogastroduodenoscopy (EGD) Hx of total cystectomy S/P carotid endarterectomy History of Problems with Anesthesia: No Social History Social History Housing: House Smoking Status: Never smoker Second Hand Smoke Exposure: No Use of substances other than those prescribed or required for medical reasons: Yes Substance Use Type: Marijuana Advance Directives: Yes Advance Directives Information Provided: No Advance Directives on File: Yes Advance Directives Date on File: 09/11/20 service: Yes Current occupational status: retired Meds Allergies Allergy/AdvReac Type Severity Reaction Status Date / Time No Known Allergies Allergy Verified 11/25/20 08:50 Home Medications Medication Instructions Recorded Confirmed Type lisinopril 10 mg PO DAILY 09/05/20 11/17/20 History omeprazole 20 mg PO Q2D 09/05/20 09/05/20 History simvastatin 40 mg PO DAILY 09/05/20 11/17/20 History aspirin 1 tab PO QAM 11/17/20 11/17/20 History Exam Height,Weight and Vital Signs: Vital Signs Temp Pulse Resp BP Pulse Ox 11/25/20 08:51 97.0 F 53 16 142/62 H 98 Airway Mallampati Class: II TM Dist: >3cm Neck ROM: Full Loose/Missing/Broken Teeth: Yes (Broken,missing) Heart: RRR Lungs: CTAB Assessment and Plan Assessment Anesthesia Assessment: Anesthesia Plan Discussed and Chart Reviewed Final Anesthetic Review NPO: Yes ASA Class: II Final Preanesthetic Review: No Changes in Pt Med Stat, Meds/Allgs Chart Reviewed, Consent Obtained/Reviewed and Anes Risks/Benef Reviewed Patient Risk: Intermediate Procedure Risk: Low Assessment/Block/Sedation in SS: Assess/Block/Sedation-SS Anesthetic Plan Anesthetic Plan: GA Disposition: Standard PACU
[2020-11-25 08:51] VITALS: BP 142/62; PULSE 53; RESP 16; TEMP 36.1; O2SAT 98
[2020-11-25] MEDS: ceFAZolin Sodium/Dextrose,Iso 2 GM/50 ML PIGGYBACK IV (09:11)
[2020-11-25] MEDS: Lactated Ringers 1,000 ML 100 ML IVCONT (09:11)
--- NOTE | 2020-11-25 09:23 | MHC.SHP ---
Pre-Procedural Eval Section B Chief Complaint: inguinal hernia Allergies: Allergies Allergy/AdvReac Type Severity Reaction Status Date / Time No Known Allergies Allergy Verified 11/25/20 08:50 Plan I have reviewed the history and physical and performed a pertinent physical examination on my patient. No changes have occurred unless specified.
--- NOTE | 2020-11-25 10:27 | P.BOP_ITS ---
Brief Operative Note Date of Service: 11/25/20 Pre-op diagnosis: L ing herniia Post-op diagnosis: same Procedure: repair of left inguinal hernia Surgeon: Yuri Gambino MD Anesthesia: GLMA Senior Java Programmer: Dominique Mckeon Estimated blood loss (mL): 3 Pathology: none sent Condition: stable Disposition: PACU
--- NOTE | 2020-11-25 10:28 | PM.OP ---
Brief Operative Note Date of Service: 11/25/20 Pre-op diagnosis: left inguinal hernia Post-op diagnosis: same Procedure: repair of left inguinal hernia with mesh Implants: BARD PERFIX MESH, medium Surgeon: LANA TORRES MD Anesthesia: GLMA Virtualization Architect: Dominique Mckeon Estimated blood loss (mL): 10 Pathology: none sent Condition: stable Disposition: PACU
[2020-11-25 10:30] VITALS: BP 112/55; PULSE 52; RESP 16; TEMP 36.5; O2SAT 98
[2020-11-25 10:35] VITALS: BP 121/64; PULSE 49; RESP 18; O2SAT 98
[2020-11-25 10:40] VITALS: BP 136/77; PULSE 50; RESP 16; O2SAT 97
[2020-11-25 10:55] VITALS: PULSE 53; RESP 18; TEMP 36.3
--- NOTE | 2020-11-25 11:29 | HO.POSTANES ---
Post Anesthesia Evaluation Post Anesthesia Evaluation Vital Signs: Vital Signs Temp Pulse Resp BP Pulse Ox 11/25/20 10:55 97.4 F 53 18 11/25/20 10:40 50 16 136/77 97 11/25/20 10:35 49 L 18 121/64 98 11/25/20 10:30 97.7 F 52 16 112/55 L 98 11/25/20 08:51 97.0 F 53 16 142/62 H 98 Anesthesia: General LMA Mental Status: Awake Pain Control: Satisfactory Nausea/Vomiting: None Hydration: Adequate Anesthesia-Related Issues: No Anes. Related Issues
--- NOTE | 2020-11-25 12:37 | OP_ITS ---
SURGEON: Yuri Gambino MD INDICATIONS: The patient is a 60-year-old male with note of are reducible mass in the left groin consistent with a left inguinal hernia. He wanted to proceed with repair. He understood the technique of repair with mesh. He is aware of the risks, benefits, and alternatives. PREOPERATIVE DIAGNOSIS: Left inguinal hernia. POSTOPERATIVE DIAGNOSIS: Left inguinal hernia, indirect. PROCEDURE PERFORMED: Repair of the left inguinal hernia with mesh. ESTIMATED BLOOD LOSS: COMPLICATIONS: ANESTHESIA: ASSISTANTS: Dominique Mckeon PA-C SPECIMENS: DESCRIPTION OF PROCEDURE: He was brought to the operating room, placed in supine position under general anesthesia via laryngeal mask airway. The left groin was prepped and draped in usual sterile fashion. A surgical time-out was done. The patient received cefazolin 2 g IV preoperatively. I proceeded to aleksandar my planned line of incision along an imaginary line from anterior superior iliac spine to the pubic ramus. I infiltrated the area using lidocaine 1%. I made a short incision using blade #15, and this was carried through the full-thickness skin and subcutaneous fat using electrocautery until I was able to clearly visualize the external oblique aponeurosis. I bluntly dissected the external oblique aponeurosis using gauze to expose the external ring. I found the external ring using further blunt dissection. I then proceeded to make a short incision on the external oblique aponeurosis parallel to its fibers and extended this inferomedially to connect with the external ring using an open-tip pair of scissors. The edges of the external oblique aponeurosis were then grasped with hemostats. I bluntly dissected the underside to create a pocket for the mesh. There was note of good plane on the underside of this aponeurosis. Then, I proceeded to the spermatic cord and its contents including a large fat containing hernia was noted. I bluntly dissected the cord along with its contents using index finger until I was able to pass a [place] drain around this. This [place] drain was used for traction. We proceeded to then separate the fat contents of the hernia away from the rest of the cord contents using the Adson forceps. I identified the vas deferens and its accompanying vessels. These were protected during the rest of the dissection. I proceeded to reduce the entire hernia contents to the internal ring. This was therefore an indirect hernia. I reinforced the internal ring with a medium-sized plug. The plug was secured with Prolene 2-0 suture to shelving edge of the inguinal ligament laterally and the internal oblique superiorly as well as medially using Prolene 2-0 sutures through the inner leaves of the plug. I reinforced the floor of the canal with keyhole mesh. The tails of the mesh were passed around the cord at the level of internal ring and were secured together with Prolene 2-0 sutures. I secured the keyhole mesh to the fascia to the shelving edge with inguinal ligament laterally and the internal oblique superiorly and medially as well as the pubic ramus inferomedially using Prolene 2-0 sutures. I copiously irrigated. Once hemostasis was then confirmed, I removed the retracting [place] drain. I closed the external oblique aponeurosis running Dexon 2-0 stitch to re-create the external ring. The subcutaneous layer was reapposed with Dexon 3-0 interrupted sutures. Skin closure was achieved with Dexon 4-0 subcuticular running stitch. Steri-Strips and dressings were applied. The incision was then infiltrated with Marcaine 0.5% for postop analgesia and the procedure was completed. The patient tolerated the procedure well. There were no complications noted. Initial and final counts of sponges and instruments were correct. Estimated blood loss was about 2 cc. The patient was extubated without difficulty and transferred to recovery room with stable vital signs. MD MANUEL Vila/JERE / [id number] MTDD
== END 2020-11-25 11:50 ==
LOC: HO.SSS 08:33
PROVIDERS: PCP Internal Medicine; Visit Provider Surgery
PROC: (CPT 49650; principal; 2020-11-25 10:20)
DX: K40.90 Unilateral inguinal hernia, without obstruction or gangrene, not specified as recurrent (principal); I10 Essential (primary) hypertension; Z85.51 Personal history of malignant neoplasm of bladder; Z90.6 Acquired absence of other parts of urinary tract; Z86.73 Personal history of transient ischemic attack (TIA), and cerebral infarction without residual deficits; R91.8 Other nonspecific abnormal finding of lung field; Z80.1 Family history of malignant neoplasm of trachea, bronchus and lung; Z79.899 Other long term (current) drug therapy; Z79.82 Long term (current) use of aspirin; F12.90 Cannabis use, unspecified, uncomplicated
CPT/HCPCS: 49505; C1781; J0690; J1100; J1170; J1885; J2250; J2405

== ENCOUNTER → 2020-12-08 10:33 | Outpatient (BNVA) | payer MEDICARE, SELFPAY | PROVIDERS: PCP Internal Medicine; Visit Provider Surgery | DX: K40.90 Unilateral inguinal hernia, without obstruction or gangrene, not specified as recurrent (principal) | CPT/HCPCS: 99212 ==

== ENCOUNTER 2022-07-27 08:29 | Outpatient (REF) | payer MEDICARE, SELFPAY ==
[2022-07-27 08:47] LABS: MANUAL DIFF FLAG NO
[2022-07-27 09:17] LABS: Basophils Percent Auto 0.3 % (0-2); Eosinophils Absolute Auto 0.1 X10*3/uL (0.0-0.4); Eosinophils Percent Auto 1.7 % (0-4); Hematocrit 36.4 % (42.0-52.0); Hemoglobin 12.3 g/dl (14.0-18.0); Imm Gran Abs Auto 0.04 X10*3/uL (0.00-0.03); Imm Gran Pct Auto 0.6 % (0.0-0.4); Lymphocytes Percent Auto 13.9 % (20-40); Mean Corpuscular HGB Conc 33.8 g/dl (31.0-36.0); Mean Corpuscular Hemoglobin 29.3 pg (27.0-33.0); Mean Corpuscular Volume 86.7 fL (80.0-98.0); Mean Platelet Volume 9.6 fL (9.4-12.4); Monocytes Absolute Auto 0.5 X10*3/uL (0.1-1.2); Monocytes Percent Auto 7.1 % (2-11); Neutrophils Absolute Auto 5.4 x10*3/uL (2.0-8.3); Neutrophils Percent Auto 76.4 % (45-73); Platelet Count 297 X10*3/uL (160-400); Red Cell Distribution Width 13.7 % (11.0-16.0)
[2022-07-27 09:20] LABS: Appearance Urine Clear; Color Urine Yellow; Glucose Urine UA Negative (Negative); Leukocyte Esterase Urine Negative (Negative); Nitrite Urine Negative (Negative); PH 6.5 (5.0-9.0); Urine Blood Negative (Negative); Urine Ketones Negative (Negative); Urine Protein 30 (1+) mg/dL (Neg-Trace)
[2022-07-27 09:30] LABS: Bacteria Urine None Seen (None Seen); Hyaline Casts Urine 0-2 /LPF (0-2); RBC Urine 0-2 /HPF (0-2)
[2022-07-27 09:47] LABS: Albumin Level 4.3 g/dL (3.5-5.0); Anion Gap 15 (12-20); Blood Urea Nitrogen 19 mg/dL (9-16); Carbon Dioxide 18 mmol/L (22-29); Chloride 107 mmol/L (96-108); Estimated Glomerular Filt Rate > 60; Iron 87 mcg/dL (45-160); Magnesium 1.6 mg/dL (1.6-2.6); Percent Iron Saturation 24 % (15-50); Phosphorus 2.3 mg/dL (2.7-4.5); Potassium 5.1 mmol/L (3.3-5.1); Sodium 135 mmol/L (135-145); Total Iron Binding Capacity 364 mcg/dL (228-428); Unsaturated Iron Binding 277 ug/dL
[2022-07-27 09:51] LABS: Creatinine Urine 56.54 mg/dL; Microalbum/Creatinine Ratio Ur 298.9 ug/mg cr; Protein/Creatinine Ratio, Ur 0.55 (<0.2); Total Protein Urine Random 31 mg/dL (<12)
[2022-07-27 10:02] LABS: Ferritin 30 ng/mL (20-250)
[2022-07-28 14:46] LABS: Calcium (PTHI) 9.2 mg/dL (8.6-10.3); PTHI 43 pg/mL (16-77)
== END 2022-07-27 08:30 | disposition home or self-care (01) ==
LOC: HO.LAB 08:29
PROVIDERS: PCP Internal Medicine; Visit Provider Internal Medicine Nephrology
DX: N18.31 Chronic kidney disease, stage 3a (principal); N25.0 Renal osteodystrophy
CPT/HCPCS: 36415; 80051; 81001; 82040; 82043; 82306; 82310; 82565; 82728; 83540; 83735; 83970; 84100; 84156; 84520; 85025; 87086

== ENCOUNTER 2022-08-05 12:13 | Outpatient (REF) | payer MEDICARE, SELFPAY ==
--- NOTE | ~2022-08-05 | US_ITS ---
EXAMINATION: US RETROPERITONEAL LIMITED (RENAL ONLY) CLINICAL INFORMATION: CKD stage 3. COMPARISON: None TECHNIQUE: Real-time imaging of the kidneys. FINDINGS: RIGHT KIDNEY: 11.8 x 5.3 x 5.2 cm (SAG x AP x TRV). The kidney is normal in size, contour, and echogenicity. Renal cortical thickness is normal. No renal calculi or hydronephrosis. There are anechoic cysts in the midpole measuring 2.0 x 2.5 x 2.0 cm and 1.1 x 1.0 0.9 cm. LEFT KIDNEY: 13.3 x 5.5 x 5.1 cm (SAG x AP x TRV). The kidney is normal in size, contour, and echogenicity. Renal cortical thickness is normal. No renal calculi or hydronephrosis. There is anechoic cyst lower pole measuring 3.7 x 3.6 x 3.8 cm. US/US renal BI IMPRESSION: Bilateral renal cysts. No echogenic stones or hydronephrosis.
== END 2022-08-05 12:14 | disposition home or self-care (01) ==
LOC: HO.US 12:13
PROVIDERS: Visit Provider Internal Medicine Nephrology
DX: N18.31 Chronic kidney disease, stage 3a (principal); N25.0 Renal osteodystrophy
CPT/HCPCS: 76775

== ENCOUNTER 2023-02-02 07:40 | Outpatient (REF) | payer MEDICARE, MEDICAID, SELFPAY ==
--- NOTE | ~2023-02-02 | US_ITS ---
EXAMINATION: US RETROPERITONEAL LIMITED (RENAL ONLY) CLINICAL INFORMATION: Chronic kidney disease stage 3. COMPARISON: Renal ultrasound 08/05/2022. TECHNIQUE: Real-time imaging of the kidneys. FINDINGS: RIGHT KIDNEY: 12.2 x 5.1 x 5.2 cm (SAG x AP x TRV). The kidney is normal in size, contour, and echogenicity. Renal cortical thickness is normal. No renal calculi or hydronephrosis. There are 2 simple cysts largest measuring up to 2.5 cm, for which no imaging follow-up is recommended. LEFT KIDNEY: 14.0 x 5.4 x 5.4 cm (SAG x AP x TRV). The kidney is normal in size, contour, and echogenicity. Renal cortical thickness is normal. No renal calculi or hydronephrosis. There is a simple cyst in the lower pole measuring up to 3.9 cm, for which no imaging follow-up is recommended. US/US renal BI IMPRESSION: No acute sonographic abnormalities.
== END 2023-02-02 07:41 | disposition home or self-care (01) ==
LOC: HO.US 07:40
PROVIDERS: PCP Internal Medicine; Visit Provider Internal Medicine Nephrology
DX: N18.31 Chronic kidney disease, stage 3a (principal); N25.0 Renal osteodystrophy
CPT/HCPCS: 76775

== ENCOUNTER 2024-08-08 11:48 | Outpatient (AMB) | payer MEDICARE, MEDICAID, SELFPAY ==
--- NOTE | 2024-08-08 12:02 | A.OFFPC_ITS ---
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 ?? Prior PCP:?Dr Lopez Last office visit/CPE:? 7-8 mos ago for Checkup Acute issue(s):? Patient?with?history?of?strokes?x4?and?prior?TIAs, notes?that?he?had?a?recent?episode?with?facial?drooping?and?unilateral?weakness which?lasted?only?about?20?minutes.??He?has?not?contacted?his? neurologist?at?[facility] [place]. ?? PMHx:? Hypertension, hyperlipidemia, GERD/gastritis, anemia, inguinal?hernia, CVA x 4 Neurology in [facility], Stage 4 Bladder CA & Neobladder. Lung Nodules, Sleep Apnea. Saw Cardiology at [facility] once. SurgHx:??Inguinal?hernia?repair, Neobladder surgery. FHx:?Mom: lung CA, HLD. Dad: HLD. SocHx: Nonsmoker. EtoH 5-6 drinks a day. No drugs. [facility] Medical History (Updated 08/08/24 @ 13:05 by Garth Acosta MD) Lung nodules Lab test negative for COVID-19 virus Left inguinal hernia Carotid stenosis Bladder cancer HTN (hypertension) High cholesterol CVA (cerebral vascular accident) TIA (transient ischemic attack) Surgical History History of esophagogastroduodenoscopy (EGD) H/O colonoscopy Hx of total cystectomy S/P carotid endarterectomy Family History Father Dementia Mother Lung cancer Social History (Updated 08/08/24 @ 12:04 by Georgina Leone MA) Household Members Other:: Ex- Housing: House Do you presently have visiting nurse or other home services: No Comment: minimal discomfort Patient Tobacco Use Status: Never used Tobacco e-Cigarette/Vaping Use: Never Used Second Hand Smoke Exposure: No Use of substances other than those prescribed or required for medical reasons: Yes Substance Use Type: Marijuana Advance Directives Date on File: 09/11/20 service: Yes Current occupational status: retired Current occupational exposures/hazards: No Cognitive needs: No Hearing needs: No Vision needs: Yes Questionnaire PHQ-9 Over the last 2 weeks, how often have you been bothered by any of the following problems? 1. Little interest or pleasure in doing things: not at all 2. Feeling down, depressed, or hopeless: not at all 3. Trouble falling or staying asleep, or sleeping too much: not at all 4. Feeling tired or having little energy: not at all 5. Poor appetite or overeating: not at all 6. Feeling bad about yourself - or that you are a failure or have let yourself or your family down: not at all 7. Trouble concentrating on things, such as reading the newspaper or watching television: not at all 8. Moving or speaking so slowly that other people could have noticed. Or the opposite - being so fidgety or restless that you have been moving around a lot more than usual: not at all 9. Thoughts that you would be better off or of hurting yourself in some way: not at all Total score: 0 Depression Screening Interpretation: Negative Depression Screening Done: Yes 43699 - PHQ-9 Billing: Yes Source: Developed by Drs. Earl Lin, Marcelina Villegas, Alfonso Foster and colleagues, with an educational nita from [employer]. Thrive Questionnaire Date Thrive assessed: 08/08/24 I am a: Patient What is your living situation today?: I have a steady place to live Within the past 12 months, did the food you bought not last and you didn't have the money to get more?: Never true Within the past 12 months, did you worry whether your food would run out before you got money to buy more?: Never true Do you have trouble paying for medicines?: No Do you have trouble getting transportation to medical appointments?: No Do you have trouble paying your heating and electricity bill?: No Do you have trouble taking care of your child, family member or friend?: No Do you have trouble with day-to-day activities such as bathing, preparing meals, shopping, managing finances, etc.?: No Are you currently unemployed and looking for a job?: No Are you interested in more education?: No Please select the resources that you would like help with: None Currently or been in a relationship where the following occur: No concerns reported THRIVE Score: 0 AUDIT C Alcohol Use Questionnaire (AUDIT-C) 1. How often do you have a drink containing alcohol?: 4 or more times a week 2. How many drinks containing alcohol do you have on a typical day when you are drinking?: 5 or 6 3. How often do you have six or more drinks on one occasion?: Daily or almost daily Total Score: 10 Score Reviewed/Action Taken: Yes KRYSTA-7 AMB Questionnaire KRYSTA-7 Date KRYSTA - 7 assessed: 08/08/24 Feeling nervous, anxious, or on edge: 0 = Not at all Not being able to stop or control worryin = Not at all Worrying too much about different things: 0 = Not at all Trouble relaxin = Not at all Being so restless that it is hard to sit still: 0 = Not at all Becoming easily annoyed or irritable: 0 = Not at all Feeling afraid as if something awful might happen: 0 = Not at all Total KRYSTA-7 score (0-4 normal; 5-9 mild; 10-14 moderate; 15-21 severe): 0 Source: Developed by Drs. Earl Lin, Marcelina Villegas, Alfonso Foster and colleagues, with an educational nita from [employer]. KRYSTA-7 Assessment Billing KRYSTA-7 Assessment Tool: KRYSTA-7 Assessment 97645 Review of Systems Const Denies chills, Denies fatigue, Denies fever(s), Denies headache(s) and Denies weakness ENT Denies dizziness and Denies headache(s) Card Denies chest pain, Denies lightheadedness, Denies dyspnea and Denies other (Palpitations) Resp Denies cough, Denies dyspnea, Denies wheezing and Denies other ( shortness of breath) Musc Denies numbness and Denies tingling Neuro Denies dizziness, Denies headache(s), Denies numbness, Denies tingling, Denies paresthesias and Denies weakness Psych Denies anxiety and Denies depression Endo Denies fatigue Aller/Immun Denies wheezing Physical exam (Primary Care) Vital Signs: Last Vital Signs Temp 97.9 F 08/08/24 12:07 Pulse 66 08/08/24 12:07 Resp 16 08/08/24 12:07 BP 120/50 L 08/08/24 12:07 Pulse Ox 99 08/08/24 12:07 Oxygen Delivery Method Room Air 08/08/24 12:07 BMI result Body Mass Index 29.0 Tobacco/Smoking Status: Tobacco use Status Tobacco use date assessed 08/08/24 08/08/24 12:10 Patient Tobacco Use Status Never used Tobacco 08/08/24 12:10 e-Cigarette/Vaping Use Never Used 08/08/24 12:10 PHQ-9: PHQ-9 Score PHQ-9: Total score 0 08/08/24 12:28 Depression Screening Interpretation: Negative Thrive Assessment: Date of Thrive Assessment Date Thrive assessed 08/08/24 08/08/24 12:10 Currently or been in a relationship where the following occur: No concerns reported Const General: no acute distress and well developed Nutritional Appearance: well nourished Orientation/consciousness: patient oriented x3 [facility] Head: Yes normocephalic and Yes atraumatic Eyes General: appearance normal, both eyes and all related structures Pupils: Equal, round and reactive pupils present EOM: EOMs intact bilaterally Resp Effort & Inspection: normal respiratory effort Auscultation: clear to auscultation bilaterally Cardio Rate: regular rate Rhythm: regular rhythm Heart sounds: S1 normal heart sound present, S2 normal heart sound present, no gallops, Murmur heart sound present (4/6 systolic murmur over aortic region) and no rubs Neuro General: patient oriented x3 and gait normal Cranial nerves: Yes Equal, round and reactive pupils present Psych Affect: normal affect Assessment and Plan Assessment & Plan (1) CVA (cerebral vascular accident): Code(s): I63.9 - Cerebral infarction, unspecified Plan: Patient?with?history?of?CVA?x4?and?description?of?likely?recent?TIA.??He?has?not ?contacted?his?neurologist?at?[facility]?and?I?advised?he?do?so?today.??Patient?agrees. Control?blood?pressure Control?lipid Checking?EKG?today?and?will?also?get?echocardiogram. Patient?says?he?was?told?that?he?is?strokes?were cholesterol?showers?from?his?carotid?arteries. He?sa ys?he?gets?an?annual?ultrasound?of?his?carotid?arteries?and?that?it?was?recently ?shown?to?be okay. Will?request?report Patient?is?on?simvastatin?40?mg?daily.??Will?switch?this?to?atorvastatin?40?mg ?daily?and?may?need?to?increase?this?to?high?dose?statin. ??I?am?requesting?his?neurologists?notes He?had?been?on?aspirin?but?discontinued?this?on?his?own. Advised?he?restart?aspirin?for?secondary?stroke?prevention. No?history?of?GI?bleeding.??Does?have?some?GERD?symptoms?but?has?omeprazole. (2) Heart murmur: Code(s): R01.1 - Cardiac murmur, unspecified Plan: Patient?has?a?a?4/6?systolic?murmur?over?aortic?region. He?says?he?has?had?some?workup?with?a?diver tender?that?he?saw?once. Unclear?if?workup?was?complete?and?patient?has history?of?CVA. Checking?echocardiogram EKG?today: Mild?sinus?bradycardia?with?heart?rate?56?beats?per?minute,?normal?axis,?no?hype rtrophy,?no?ST-T-wave?changes. (3) HTN (hypertension): Code(s): I10 - Essential (primary) hypertension Plan: Blood?pressure?is?controlled?on?lisinopril Continue?current?medication (4) High cholesterol: Code(s): E78.00 - Pure hypercholesterolemia, unspecified Plan: As?above,?patient?has?a?history?of?hyperlipidemia?and?CVA Changing?atorvastatin?as?described?above (5) Left inguinal hernia: Code(s): K40.90 - Unilateral inguinal hernia, without obstruction or gangrene, not specified as recurrent Plan: Stable/resolved s/p repair (6) History of bladder cancer: Code(s): Z85.51 - Personal history of malignant neoplasm of bladder Plan: 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 (8) Anemia: Code(s): D64.9 - Anemia, unspecified Plan: Patient?says?he?has?longstanding?history?of?anemia.??Unclear what?underlying?cause?is?though?he?has?been?on?iron?for?a?long?time Checking?H&H?as?well?as?iron?studies (9) Sleep apnea: Code(s): G47.30 - Sleep apnea, unspecified Plan: History?of?sleep?apnea which?is?untreated?as?he?has?not?been?able?to?tolerate?CPAP?in?the?past.??It?has ?been?many?years?since?he?has?tried. 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 Panel Fast Today Z00.00 - Encounter for general adult medical examination without abnormal findings Lipid Panel Today Z00.00 - Encounter for general adult medical examination without abnormal findings Microalbumin, Random (w Creat) Today I10 - Essential (primary) hypertension Prostate Specific Antigen Scr Today Z12.5 - Encounter for screening for malignant neoplasm of prostate Vitamin B12 and Folate Today D64.9 - Anemia, unspecified, E53.8 - Deficiency of other specified B group vitamins Reticulocyte Count Today D64.9 - Anemia, unspecified CA echo transthoracic complete Today I63.9 - Cerebral infarction, unspecified, R01.1 - Cardiac murmur, unspecified TSH reflex Free T4 Today Z00.00 - Encounter for general adult medical examination without abnormal findings UA and rflx microscopic Today Z00.00 - Encounter for general adult medical examination without abnormal findings IRON PROFILE Today D64.9 - Anemia, unspecified XR knee LT 3V Today M25.562 - Pain in left knee Medications: New atorvastatin 40 mg PO DAILY 90 days 90 tabs 3RF aspirin (Kath Low Dose Aspirin) 81 mg PO DAILY 90 days 90 tabs 3RF Coding Level of Care Code New Pt Level 4 (91364) Diagnoses CVA (cerebral vascular accident) I63.9 Heart murmur R01.1 HTN (hypertension) I10 High cholesterol E78.00 Left inguinal hernia K40.90 History of bladder cancer Z85.51 GERD (gastroesophageal reflux disease) K21.9 Anemia D64.9 Sleep apnea G47.30 Lung nodules R91.8 Left knee pain M25.562 Laboratory exam ordered as part of routine general medical examination Z00.00 Additional Codes KRYSTA-7 Assessment Billing - KRYSTA-7 Assessment Tool: KRYSTA-7 Assessment [id number] ([id number])
[2024-08-08 12:07] VITALS: BP 120/50; PULSE 66; RESP 16; TEMP 36.6; O2SAT 99; BMI 29.0
== END 2024-08-08 13:41 | disposition home or self-care (01) ==
PROVIDERS: PCP Family Medicine; Visit Provider Family Medicine
DX: I63.9 Cerebral infarction, unspecified (principal); R01.1 Cardiac murmur, unspecified; I10 Essential (primary) hypertension; E78.00 Pure hypercholesterolemia, unspecified; K40.90 Unilateral inguinal hernia, without obstruction or gangrene, not specified as recurrent; Z85.51 Personal history of malignant neoplasm of bladder; K21.9 Gastro-esophageal reflux disease without esophagitis; D64.9 Anemia, unspecified; G47.30 Sleep apnea, unspecified; R91.8 Other nonspecific abnormal finding of lung field; M25.562 Pain in left knee; Z00.00 Encounter for general adult medical examination without abnormal findings

== ENCOUNTER → 2024-08-08 11:48 | Outpatient (BNVA) | payer MEDICARE, MEDICAID, SELFPAY | PROVIDERS: PCP Family Medicine; Visit Provider Family Medicine | DX: I63.9 Cerebral infarction, unspecified (principal); R01.1 Cardiac murmur, unspecified; I10 Essential (primary) hypertension; E78.00 Pure hypercholesterolemia, unspecified; K40.90 Unilateral inguinal hernia, without obstruction or gangrene, not specified as recurrent; K21.9 Gastro-esophageal reflux disease without esophagitis; D64.9 Anemia, unspecified; R91.8 Other nonspecific abnormal finding of lung field; M25.562 Pain in left knee; Z85.51 Personal history of malignant neoplasm of bladder | CPT/HCPCS: 96127; 99202 ==

== ENCOUNTER 2024-08-09 08:07 | Outpatient (REF) | payer MEDICARE, MEDICAID, SELFPAY ==
[2024-08-09 11:16] LABS: MANUAL DIFF FLAG NO
[2024-08-09 11:26] LABS: Appearance Urine Turbid; Color Urine Yellow; Glucose Urine UA Negative (Negative); Leukocyte Esterase Urine Moderate (2+) (Negative); Nitrite Urine Negative (Negative); PH 6.5 (5.0-9.0); UMIC TRIGGER UA YES; Urine Blood Large (3+) (Negative); Urine Ketones Negative (Negative); Urine Protein 30 (1+) mg/dL (Neg-Trace)
[2024-08-09 11:45] LABS: Basophils Percent Auto 0.4 % (0-2); Eosinophils Absolute Auto 0.1 X10*3/uL (0.0-0.4); Eosinophils Percent Auto 1.7 % (0-4); Hematocrit 31.2 % (42.0-52.0); Hemoglobin 10.1 g/dl (14.0-18.0); Imm Gran Abs Auto 0.04 X10*3/uL (0.00-0.03); Imm Gran Pct Auto 0.5 % (0.0-0.4); Mean Corpuscular HGB Conc 32.4 g/dl (31.0-36.0); Mean Corpuscular Hemoglobin 28.1 pg (27.0-33.0); Mean Corpuscular Volume 86.7 fL (80.0-98.0); Mean Platelet Volume 10.3 fL (9.4-12.4); Monocytes Absolute Auto 0.5 X10*3/uL (0.1-1.2); Monocytes Percent Auto 7.1 % (2-11); Neutrophils Absolute Auto 5.8 x10*3/uL (2.0-8.3); Neutrophils Percent Auto 77.3 % (45-73); Platelet Count 336 X10*3/uL (160-400); Red Cell Distribution Width 14.3 % (11.0-16.0); Retic HGB Equivalent 28.5 pg (30.0-35.0); Reticulocytes Absolute 0.073 X10*6/uL (0.026-0.095); White Blood Count 7.5 X10*3/uL (4.8-10.8)
[2024-08-09 12:24] LABS: Alanine Aminotransferase 15 U/L (0-40); Albumin Level 4.2 g/dL (3.5-5.0); Alkaline Phosphatase 71 U/L (39-117); Anion Gap 11 (12-20); Aspartate Amino Transferase 20 U/L (5-37); Bilirubin Total 0.5 mg/dL (0.0-1.0); Blood Urea Nitrogen 31 mg/dL (9-16); Calcium 9.6 mg/dL (8.4-10.2); Carbon Dioxide 21 mmol/L (22-29); Chloride 109 mmol/L (96-108); Cholesterol 184 mg/dL (<200); Estimated Glomerular Filt Rate 53; Glucose Fasting 104 mg/dL (60-99); HDL Cholesterol 72 mg/dL (>40); Iron 35 mcg/dL (45-160); LDL Cholesterol Calculated 80 mg/dL (<100); Percent Iron Saturation 10 % (15-50); Potassium 4.8 mmol/L (3.3-5.1); Sodium 136 mmol/L (135-145); Total Iron Binding Capacity 335 mcg/dL (228-428); Total Protein 7.6 g/dL (6.5-8.0); Triglycerides 161 mg/dL (<150); Unsaturated Iron Binding 300 ug/dL
[2024-08-09 12:25] LABS: Creatinine Urine 71.74 mg/dL; Microalbum/Creatinine Ratio Ur 243.9 ug/mg cr (<30)
[2024-08-09 12:43] LABS: TSH reflex Free T4 1.42 uIU/mL (0.32-4.0)
[2024-08-09 12:56] LABS: Folate 16.2 ng/mL (> or = 4.0); Prostate Specific Antigen Scr < 0.10 ng/mL (<0.05-4.0); Vitamin B12 324 pg/mL (200-900)
[2024-08-09 13:19] LABS: WBC Urine 0-5 /HPF (0-5)
[2024-08-09 13:20] LABS: Bacteria Urine 1+ (None Seen); Hyaline Casts Urine 0-2 /LPF (0-2); Squamous Epithelial Cell Urine 0-2 /HPF (0-2)
== END 2024-08-09 08:08 | disposition home or self-care (01) ==
LOC: HO.WFDLDS 08:07
PROVIDERS: Visit Provider Family Medicine
DX: Z13.89 Encounter for screening for other disorder (principal)
CPT/HCPCS: 36415; 80053; 80061; 81001; 82043; 82570; 82607; 82746; 83540; 84153; 84443; 85025; 85045

== ENCOUNTER 2024-08-09 13:30 | Outpatient (REF) | payer MEDICARE, SELFPAY ==
--- NOTE | ~2024-08-09 | XR_ITS ---
EXAMINATION: XR KNEE, LEFT CLINICAL INFORMATION: M25.562 - Pain in left knee COMPARISON: None available. TECHNIQUE: Three views of the left knee. FINDINGS: No fracture, dislocation, or suspicious bone lesion. There is normal alignment. There is normal bone mineralization. There is mild medial compartment and minimal lateral compartment joint space narrowing with minimal marginal osteophytic spurring. There is mild patellofemoral joint narrowing with spurring of the lateral facet. There is a small suprapatellar joint effusion. There is a corticated calcification in the suprapatellar bursa or perhaps within the distal quadriceps tendon. There are vascular calcifications in the soft tissues. There is mild prepatellar soft tissue prominence. XR/XR knee LT 3V IMPRESSION: 1. No acute findings left knee. 2. Mild tricompartmental osteoarthrosis, most significant medial compartment. 3. Small joint effusion. 4. Mild prepatellar soft tissue swelling, suggesting possible underlying bursitis. Electronically signed by: Kirill Mariano MD 10/20/2024 08:57 PM EST
== END 2024-08-09 13:31 | disposition home or self-care (01) ==
LOC: HO.XRAY 13:30
PROVIDERS: PCP Family Medicine; Visit Provider Family Medicine
DX: M25.562 Pain in left knee (principal)
CPT/HCPCS: 36415; 73562; 80053; 80061; 81001; 82043; 82570; 82607; 82746; 83540; 84153; 84443; 85025; 85045

== ENCOUNTER → 2024-08-09 13:37 | Outpatient (BNV) | payer MEDICARE, SELFPAY | PROVIDERS: PCP Family Medicine; Visit Provider Radiology Diagnostic Radiology | DX: M17.12 Unilateral primary osteoarthritis, left knee (principal) | CPT/HCPCS: 73562 ==

== ENCOUNTER 2024-08-21 10:47 | Outpatient (REF) | payer MEDICARE, MEDICAID, SELFPAY | END 2024-08-21 10:48 | disposition home or self-care (01) | LOC: HO.LAB 10:47 | PROVIDERS: PCP Family Medicine; Visit Provider Family Medicine | DX: Z00.00 Encounter for general adult medical examination without abnormal findings (principal); M25.562 Pain in left knee; E78.00 Pure hypercholesterolemia, unspecified; I10 Essential (primary) hypertension; D64.9 Anemia, unspecified; R01.1 Cardiac murmur, unspecified; E61.1 Iron deficiency; R31.9 Hematuria, unspecified; G45.9 Transient cerebral ischemic attack, unspecified; I63.9 Cerebral infarction, unspecified | CPT/HCPCS: 99212 ==

== ENCOUNTER 2024-08-21 10:47 | Outpatient (AMB) | payer MEDICARE, MEDICAID, SELFPAY ==
--- NOTE | 2024-08-21 10:54 | MHC.PC.OV ---
Vital Signs 08/21/24 10:57 Height 5 ft 7 in Weight 182 lb 4 oz BMI 28.5 BP 120/64 Blood Pressure Location Lt brachial Position Sitting Pulse 65 Pulse Source Pulse Oximeter Pulse Oximetry (%) 93 Oxygen Delivery Method Room Air Intake Visit Reasons: 2-3 week follow up f/u chronic conditions Intake Note: Patient is here to follow up on TIA, Lab results, Lft knee xray (pending results). Emergency Vehicle Technician Required: No Internal Combustion Engine Assembler: Not Required per policy Accompanied by: Self / Same As Patient Allergies No Known Allergies Allergy (Verified 08/21/24 10:57) Medication List - Last Reconciled 08/21/24 by Garth Acosta MD aspirin (Kath Low Dose Aspirin) 81 mg PO DAILY 90 days atorvastatin 40 mg PO DAILY 90 days ferrous sulfate 325 mg PO BID lisinopril 10 mg PO DAILY omeprazole 40 mg PO DAILY 8 weeks Tobacco use date assessed: 08/21/24 Fall risk assessment: No Falls in past year Last assessed Fall Risk: 08/21/24 Dental Screening Dental Screen Date: 08/08/24 HPI 2-3 week follow up f/u chronic conditions HPI Details 63 y/o male present to f/u recent likely TIA. Hx of CVA x4 and had advised he contact his neurologist. Had restarted his aspirin and changed simvastatin to artovastatin. L knee x-ray 08/09/24. Does not seem to have been read yet. Labs drawn 08/09/24. Reviewed labs with pt. Ongoing anemia. Triglycerides 161. TC 184. LDL 80. HDL 72. PSA 0.10. Blood pressure today 120/64, 65p. He is on lisinopril 10mg daily. Ongoing hematuria. Urologist Dr. [facility]. [facility] Medical History (Updated 08/21/24 @ 11:51 by James Martines) Lung nodules Lab test negative for COVID-19 virus Left inguinal hernia Carotid stenosis Bladder cancer HTN (hypertension) High cholesterol CVA (cerebral vascular accident) TIA (transient ischemic attack) Surgical History History of esophagogastroduodenoscopy (EGD) H/O colonoscopy Hx of total cystectomy S/P carotid endarterectomy Family History (Updated 08/21/24 @ 10:55 by ALMA Hobson) Father Dementia Mother Lung cancer Social History Household Members Other:: Ex- Housing: House Do you presently have visiting nurse or other home services: No Comment: minimal discomfort Patient Tobacco Use Status: Never used Tobacco e-Cigarette/Vaping Use: Never Used Second Hand Smoke Exposure: No Substance Use Type: Marijuana Advance Directives Date on File: 09/11/20 service: Yes Current occupational status: retired Current occupational exposures/hazards: No Cognitive needs: No Hearing needs: No Vision needs: Yes Questionnaire Thrive Questionnaire Date Thrive assessed: 08/08/24 KRYSTA-7 AMB Questionnaire KRYSTA-7 Date KRYSTA - 7 assessed: 08/08/24 Source: Developed by Drs. Earl Lin, Marcelina Villegas, Alfonso Foster and colleagues, with an educational nita from [employer]. Review of Systems Const Denies chills, Denies fatigue, Denies fever(s), Denies headache(s) and Denies weakness ENT Denies dizziness and Denies headache(s) Card Denies dyspnea Resp Denies cough, Denies dyspnea, Denies wheezing and Denies other (shortness of breath) Musc Denies numbness and Denies tingling Neuro Denies dizziness, Denies headache(s), Denies numbness, Denies tingling and Denies weakness Psych Denies anxiety and Denies depression Endo Denies fatigue Aller/Immun Denies wheezing Physical exam (Primary Care) Vital Signs: Last Vital Signs Pulse 65 08/21/24 10:57 BP 120/64 08/21/24 10:57 Pulse Ox 93 08/21/24 10:57 Oxygen Delivery Method Room Air 08/21/24 10:57 BMI result Body Mass Index 28.5 Tobacco/Smoking Status: Tobacco use Status Tobacco use date assessed 08/21/24 08/21/24 11:01 Patient Tobacco Use Status Never used Tobacco 08/21/24 10:54 e-Cigarette/Vaping Use Never Used 08/21/24 10:54 Thrive Assessment: Date of Thrive Assessment Date Thrive assessed 08/08/24 08/21/24 10:54 Const General: well developed; No acute distress Nutritional Appearance: well nourished Orientation/consciousness: patient oriented x3 HENMT Head: Yes normocephalic and Yes atraumatic Eyes General: appearance normal, both eyes and all related structures Pupils: Equal, round and reactive pupils present EOM: EOMs intact bilaterally Resp Effort & Inspection: normal respiratory effort Auscultation: clear to auscultation bilaterally Cardio Rate: regular rate Rhythm: regular rhythm Heart sounds: S1 normal heart sound present, S2 normal heart sound present, no gallops, Murmur heart sound present and no rubs Neuro General: patient oriented x3 and gait normal Cranial nerves: Yes Equal, round and reactive pupils present Psych Affect: normal affect Coding Level of Care Code Est Pt Level 4 (61264) Diagnoses Left knee pain M25.562 CVA (cerebral vascular accident) I63.9 High cholesterol E78.00 HTN (hypertension) I10 Anemia D64.9 Hematuria R31.9 Heart murmur R01.1 Iron deficiency E61.1 Assessment & Plan Assessment & Plan (1) Left knee pain: Code(s): M25.562 - Pain in left knee Category: Medical Plan: X-ray?of?left?knee?is?still?pending We?can?follow-up?at?upcoming?visit (2) CVA (cerebral vascular accident): Code(s): I63.9 - Cerebral infarction, unspecified Category: Medical Plan: History?of?CVA?and?patient?had?recent?episode?with?description?concerning?for?TIA. I?had?him?resume?his?aspirin?and?change?simvastatin?to?atorvastatin. Pt saw his vascular surgeon Gay Pak at [facility] and he said she did a carotid U/S and pt says she said this looked ok. Patient?had?referred?to?his?vascular?surgeon?as?a?neurologist?at?last?visit.??Will?refer?him?to?Neurology?due?to?the?above?possible?new?TIA?to?discuss?secondary?prevention?and?monitoring. (3) High cholesterol: Code(s): E78.00 - Pure hypercholesterolemia, unspecified Category: Medical Plan: History?of?CVA.??Patient?was?on?simvastatin?and?LDL?cholesterol?80. I?had?switched?him?to?atorvastatin?just?a?couple?days?before?he?had?his?blood?drawn. Will?likely?reach?goal?of?LDL?less?than?70 Continue?atorvastatin (4) HTN (hypertension): Code(s): I10 - Essential (primary) hypertension Category: Medical Plan: Blood?pressure?is?controlled.??Goal?is?less?than?130/80 Continue?lisinopril (5) Anemia: Code(s): D64.9 - Anemia, unspecified Category: Medical Plan: Normocytic?anemia?though?iron?level?is?low. Also?high?retic?count Possible?acute?blood?loss?but?patient?denies?this.??He?does?have?some?hematuria?and?has?a?neobladder. 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 (7) Heart murmur: Code(s): R01.1 - Cardiac murmur, unspecified Category: Medical Plan: Stable However,?patient?has?follow-up?with?Cardiology?due?to history?of?CVA?and?recent?TIA-like episode. Echocardiogram?is?also?ordered (8) Iron deficiency: Code(s): E61.1 - Iron deficiency Category: Medical Plan: He?is?on?iron Continue?iron I?am?also?referring?him?to?Hematology-Oncology Orders: Orders Urine Culture Today R31.9 - Hematuria, unspecified Complete Blood Count Auto Diff Today D64.9 - Anemia, unspecified, Z00.00 - Encounter for general adult medical examination without abnormal findings Basic Metabolic Panel Today D64.9 - Anemia, unspecified, Z00.00 - Encounter for general adult medical examination without abnormal findings UA and rflx microscopic Today R31.9 - Hematuria, unspecified, Z00.00 - Encounter for general adult medical examination without abnormal findings Referrals Neurology Referral G45.9 - Transient cerebral ischemic attack, unspecified, I63.9 - Cerebral infarction, unspecified Hematology & Oncology Referral D64.9 - Anemia, unspecified, E61.1 - Iron deficiency
[2024-08-21 10:57] VITALS: BP 120/64; PULSE 65; O2SAT 93; BMI 28.5
== END 2024-08-21 11:46 | disposition home or self-care (01) ==
PROVIDERS: PCP Family Medicine; Visit Provider Family Medicine
DX: M25.562 Pain in left knee (principal); I63.9 Cerebral infarction, unspecified; E78.00 Pure hypercholesterolemia, unspecified; I10 Essential (primary) hypertension; D64.9 Anemia, unspecified; R31.9 Hematuria, unspecified; R01.1 Cardiac murmur, unspecified; E61.1 Iron deficiency

== ENCOUNTER 2024-08-21 12:02 | Outpatient (REF) | payer MEDICARE, MEDICAID, SELFPAY ==
[2024-08-21 14:21] LABS: MANUAL DIFF FLAG NO
[2024-08-21 14:30] LABS: Basophils Percent Auto 0.4 % (0-2); Eosinophils Absolute Auto 0.1 X10*3/uL (0.0-0.4); Eosinophils Percent Auto 1.3 % (0-4); Hematocrit 30.1 % (42.0-52.0); Hemoglobin 10.1 g/dl (14.0-18.0); Imm Gran Abs Auto 0.04 X10*3/uL (0.00-0.03); Imm Gran Pct Auto 0.5 % (0.0-0.4); Lymphocytes Absolute Auto 1.1 X10*3/uL (1.2-4.9); Mean Corpuscular HGB Conc 33.6 g/dl (31.0-36.0); Mean Corpuscular Hemoglobin 29.1 pg (27.0-33.0); Mean Corpuscular Volume 86.7 fL (80.0-98.0); Mean Platelet Volume 9.9 fL (9.4-12.4); Monocytes Absolute Auto 0.6 X10*3/uL (0.1-1.2); Monocytes Percent Auto 7.9 % (2-11); Neutrophils Absolute Auto 5.8 x10*3/uL (2.0-8.3); Neutrophils Percent Auto 75.9 % (45-73); Platelet Count 322 X10*3/uL (160-400); Red Blood Count 3.47 X10*6/uL (4.60-5.80); White Blood Count 7.6 X10*3/uL (4.8-10.8)
[2024-08-21 14:37] LABS: Anion Gap 12 (12-20); Blood Urea Nitrogen 40 mg/dL (9-16); Calcium 9.3 mg/dL (8.4-10.2); Carbon Dioxide 18 mmol/L (22-29); Chloride 109 mmol/L (96-108); Estimated Glomerular Filt Rate 38; Glucose Random 95 mg/dL (60-115); Potassium 5.4 mmol/L (3.3-5.1); Sodium 134 mmol/L (135-145)
[2024-08-21 15:07] LABS: Appearance Urine Clear; Color Urine Yellow; Glucose Urine UA Negative (Negative); Leukocyte Esterase Urine Trace (Negative); Nitrite Urine Negative (Negative); PH 6.5 (5.0-9.0); UMIC TRIGGER UA YES; Urine Blood Trace (Negative); Urine Ketones Negative (Negative); Urine Protein Trace mg/dL (Neg-Trace)
[2024-08-21 15:41] LABS: Bacteria Urine None Seen (None Seen); Hyaline Casts Urine 0-2 /LPF (0-2)
== END 2024-08-21 12:03 | disposition home or self-care (01) ==
LOC: HO.WFDLDS 12:02
PROVIDERS: Visit Provider Family Medicine
DX: Z00.00 Encounter for general adult medical examination without abnormal findings (principal); D64.9 Anemia, unspecified; R31.9 Hematuria, unspecified
CPT/HCPCS: 36415; 80048; 81001; 81003; 85025; 87086

== ENCOUNTER → 2024-08-29 07:51 | Outpatient (REF) | payer MEDICARE, SELFPAY ==
--- NOTE | 2024-08-29 07:54 | CA_ITS ---
Transthoracic Echocardiogram Patient (Last, First, Middle): Live Farah R Gender: Male Date of : 1960 Age: 64 Procedure Date: 08/29/2024 Procedure Type: Transthoracic Echocardiogram Location: OP Height: 170.18 cm Weight: 83.92 kg BSA: 1.96 m2 Heart Rate: bpm BP: 116 / 60 mmHg Production Broacher: Referring MD: Garth Acosta MD Area Field Person: Roberto Javed MD Symptoms: R01.1 - Cardiac murmur, unspecified Study Quality: Good ECG Rhythm: Sinus Conclusions: - 1. Normal LV ejection fraction of 60-65% with mild LVH with impaired relaxation filling pattern 2. Mildly dilated left atrium 3. Moderate calcific aortic stenosis with underlying possible bicuspid aortic valve 4. Normal RV systolic pressure 5. Mildly dilated ascending aorta at 3.8 cm 6. No gross pericardial effusion Findings Left Ventricle Normal left ventricular size and systolic function. There is mildly increased left ventricular wall thickness. The visually estimated ejection fraction is between 60-65%. Spectral Doppler is indicative of an impaired relaxation filling pattern. E/E prime ratio is between 8 and 15 consistent with indeterminate filling pressures. Right Ventricle Normal right ventricular cavity size and systolic function. Atria The left atrium is mildly dilated. There is lipomatous hypertrophy of the interatrial septum. There is no evidence of interatrial shunt. The right atrium is normal in size. Aortic Valve There is a bicuspid aortic valve. There is moderate calcification of the aortic valve. There is moderate thickening of the aortic valve. There is moderate aortic valve stenosis. There is no aortic valve regurgitation. Mitral Valve Likely normal mitral valve structure and function. There is no mitral valve regurgitation. There is no mitral valve stenosis. Pulmonic Valve The pulmonic valve is likely normal. There is trace pulmonic valve regurgitation. Tricuspid Valve Normal tricuspid valve structure. There is trace tricuspid valve regurgitation. Normal right atrial pressure. There is no evidence of pulmonary hypertension. Great Vessels The pulmonary artery was not well visualized. There is mild dilatation of the ascending aorta measuring 3.80 cm. Small plaque is seen in the sino tubular ridge. Venous The inferior vena cava is normal in size and collapses greater than 50% with inspiration. Pericardium/Pleural There is no evidence of pericardial effusion. Prior Study Comparison No prior study available for comparison. Measurements 2D Linear Measurements IVSd: 1.23 0.6-0.9/0.6-1.0 cm LVIDd: 4.87 3.9-5.3/4.2-5.9 cm LVIDd Index: 2.48 2.4-3.2/2.2-3.1 cm/m2 LVIDs: 3.09 2.0-3.6 cm LVPWd: 1.23 0.7-1.1 cm Ao Root: 3.80 2.1-3.5 cm LA Diam: 3.70 2.7-3.8/3.0-4.0 cm LAIDs Index: 1.89 1.5-2.3 cm/m2 LV Mass: 289.46 67-162/88-224 g LV Mass Index: 147.69 43-95/49-115 g/m2 LVOT Diam: 2.10 3.0+(-)1.3 cm Mitral Valve MV Pk E: 0.68 MV PK A: 0.66 MV Decel Time: 264.00 E/A: 1.00 E'Lateral: 9.25 E'Medial: 8.05 E/E' Med: 8.40 E/E' Lat: 7.30 PHT: 77.00 MVA PHT: 2.86 Decel Whitfield: 2.57 Aortic Valve AoV Pk Tyrone: 2.79 AoV Mn Tyrone: 1.73 AoV VTI: 0.63 AoV Pk Grad: 31.00 Aov Mn Grad: 15.00 CHANDLER Cont.VTI: 1.39 LVOT LVOT Pk Tyrone: 0.96 LVOT Mn Tyrone: 0.63 LVOT VTI: 0.25 LVOT Pk Grad: 4.00 LVOT Mn Grad: 2.00 LVOT Diam: 2.10 LVOT Area: 3.46 Diastolic Function MV Pk E: 0.68 MV Pk A: 0.66 E/A: 1.00 E'Medial: 8.05 E/E' Med: 8.40 E' Laterial: 9.25 E/E' Lat: 7.30 Right Ventricle TAPSE (mm): 24.00 TVS' Tyrone: 10.00 Tricuspid Valve TR Pk Tyrone: 2.32 TR Pk Grad: 22.00 RA Press: 3.00 RVSP: 25.00 Great Vessels Aorta Ao Root-2D: 3.80 2.0-3.7 cm Ao Asc: 3.80 2.1-3.4 cm Pulmonary Valve PV Pk Tyrone: 1.36 Peak PV Grad: 7.00 Updated in Other Vendor System with Status of Final Roberto Javed MD electronically signed on 08/30/2024 9:19:29 AM with status of Final
== END ==
LOC: HO.CARD 07:51
PROVIDERS: PCP Family Medicine; Visit Provider Family Medicine
DX: R01.1 Cardiac murmur, unspecified (principal); I63.9 Cerebral infarction, unspecified
CPT/HCPCS: 93306

== ENCOUNTER → 2024-09-07 10:24 | Outpatient (BNVA) | payer MEDICARE, SELFPAY | PROVIDERS: PCP Family Medicine; Visit Provider Family Medicine ==

== ENCOUNTER → 2024-09-07 10:24 | Outpatient (AMB) | payer MEDICARE, SELFPAY ==
--- NOTE | 2024-09-07 10:22 | A.OFFPC_ITS ---
Intake Visit Reasons: f/u knee pain, anemia via telemedicine Intake Note: f/u labs and knee pain Allergies No Known Allergies Allergy (Verified 09/07/24 10:24) Tobacco use date assessed: 08/21/24 Dental Screening Dental Screen Date: 08/08/24 HPI f/u knee pain, anemia via telemedicine HPI Details 64 y/o male presents to f/u knee pain, a nemia and labs via telemedicine. Labs drawn 08/21/24. Reviewed labs with pt. Ongoing anemia. Has an appt. with Heme Onc October 09. Sodium mildly low at 134. Potassium 5.4. Creatinine level worsened from 1.34 to 1.82. Has known CKD. No recent episode of TIA. He continues taking aspirin and artovastatin. [facility] Medical History (Updated 09/07/24 @ 11:19 by James Martines) Lung nodules Lab test negative for COVID-19 virus Left inguinal hernia Carotid stenosis Bladder cancer HTN (hypertension) High cholesterol CVA (cerebral vascular accident) TIA (transient ischemic attack) Surgical History History of esophagogastroduodenoscopy (EGD) H/O colonoscopy Hx of total cystectomy S/P carotid endarterectomy Family History (Updated 08/21/24 @ 10:55 by ALMA Hobson) Father Dementia Mother Lung cancer Social History Household Members Other:: Ex- Housing: House Do you presently have visiting nurse or other home services: No Comment: minimal discomfort Patient Tobacco Use Status: Never used Tobacco e-Cigarette/Vaping Use: Never Used Second Hand Smoke Exposure: No Substance Use Type: Marijuana Advance Directives Date on File: 09/11/20 service: Yes Current occupational status: retired Current occupational exposures/hazards: No Cognitive needs: No Hearing needs: No Vision needs: Yes Questionnaire Thrive Questionnaire Date Thrive assessed: 08/08/24 KRYSTA-7 AMB Questionnaire KRYSTA-7 Date KRYSTA - 7 assessed: 08/08/24 Source: Developed by Drs. Earl Lin, Marcelina Villegas, Alfonso Foster and colleagues, with an educational nita from [employer]. Review of Systems Const Denies chills, Denies fatigue, Denies fever(s), Denies headache(s) and Denies weakness ENT Denies dizziness and Denies headache(s) Card Denies dyspnea Resp Denies cough, Denies dyspnea, Denies wheezing and Denies other (shortness of breath) Musc Denies numbness and Denies tingling Neuro Denies dizziness, Denies headache(s), Denies numbness, Denies tingling and Denies weakness Psych Denies anxiety and Denies depression Endo Denies fatigue Aller/Immun Denies wheezing Physical exam (Primary Care) Tobacco/Smoking Status: Tobacco use Status Tobacco use date assessed 08/21/24 09/07/24 10:25 Patient Tobacco Use Status Never used Tobacco 09/07/24 10:25 e-Cigarette/Vaping Use Never Used 09/07/24 10:25 Thrive Assessment: Date of Thrive Assessment Date Thrive assessed 08/08/24 09/07/24 10:25 Telehealth Telehealth Telehealth Platform: Telephone Location of provider rendering services: practice address Location of patient: address on file Patient Identification confirmed using: Name, : Yes Telehealth method: voice only Patient verbally consented to treatment: Yes Patient verbally consented to billing insurance company: Yes Patient informed of any privacy concerns related to visit: Yes Minutes spent on Phone/Video with Pt.: 10 Coding Level of Care Code Tele Est Pt Level 2 (10723) Diagnoses Left knee pain M25.562 Anemia D64.9 Chronic kidney disease N18.9 Hyperkalemia E87.5 Aortic stenosis I35.0 HTN (hypertension) I10 CVA (cerebral vascular accident) I63.9 TIA (transient ischemic attack) G45.9 Assessment & Plan Assessment & Plan (1) Left knee pain: Code(s): M25.562 - Pain in left knee Category: Medical Plan: Patient?got?x-rays?in?July?but?they?have?not?been?read?yet. Will?call?him?if?action?is?required?otherwise?will?review?with?next?visit. (2) Anemia: Code(s): D64.9 - Anemia, unspecified Category: Medical Plan: Ongoing?anemia?which?appears?stable. Unclear?cause?though?patient?does?have?some?chronic?kidney?disease He?has?an?appointment?with?Hematology-Oncology (3) Chronic kidney disease: Code(s): N18.9 - Chronic kidney disease, unspecified Category: Medical Plan: Creatinine?level?has?bumped?up.??He?has?been?on?lisinopril?for?years. Encouraged?good?hydration Will?recheck?this (4) Hyperkalemia: Code(s): E87.5 - Hyperkalemia Category: Medical Plan: As?above,?encouraged?good?hydration He?has?been?on?lisinopril?for?years.??I?advised?he?avoid?high?potassium?foods Will?recheck?potassium?level (5) Aortic stenosis: Code(s): I35.0 - Nonrheumatic aortic (valve) stenosis Category: Medical Plan: Recent?echocardiogram?showed?moderate?aortic?stenosis. I?have?referred?him?to?Cardiology (6) HTN (hypertension): Code(s): I10 - Essential (primary) hypertension Category: Medical Plan: Blood?pressure?was?controlled?at?last?visit He?is?taking?lisinopril?as?prescribed (7) CVA (cerebral vascular accident): Code(s): I63.9 - Cerebral infarction, unspecified Category: Medical Plan: History?of?CVA?and?recent?description?of?likely?TIA. He?has?been?followed?by?vascular?surgery?at?[facility]?and?they?had?performed?or?caroti d?Dopplers. Follow-up?with?vascular?as?recommended Patient?had?not?been?on?medication?for?secondary?stroke?prevention?and?had?recen t?episode?which?may?be?TIA. Started?him?on?atorvastatin?40?mg?daily?and?aspirin. I?have?referred?him?to?Neurology?to?discuss?secondary?stroke?prevention. He?says?he?was?contacted?once?but?has?not?been?scheduled.??I?gave?him?the?phone? number?and?advised?he?call?them?to?get?scheduled. (8) TIA (transient ischemic attack): Code(s): G45.9 - Transient cerebral ischemic attack, unspecified Category: Medical Plan: As?above Orders: Orders Microalbumin, Random (w Creat) Today I10 - Essential (primary) hypertension, N18.9 - Chronic kidney disease, unspecified Comprehensive Met. Panel Today E87.5 - Hyperkalemia
== END ==
LOC: HO.HMCFM 10:24
PROVIDERS: PCP Family Medicine; Visit Provider Family Medicine
DX: I12.9 Hypertensive chronic kidney disease with stage 1 through stage 4 chronic kidney disease, or unspecified chronic kidney disease (principal); N18.9 Chronic kidney disease, unspecified; I63.9 Cerebral infarction, unspecified; M25.562 Pain in left knee; D64.9 Anemia, unspecified; E87.5 Hyperkalemia; I35.0 Nonrheumatic aortic (valve) stenosis; G45.9 Transient cerebral ischemic attack, unspecified

== ENCOUNTER → 2024-09-18 12:40 | Outpatient (REF) | payer MEDICARE, SELFPAY ==
--- NOTE | 2024-09-18 12:44 | HM_ITS ---
Conclusion: 1. Patient was monitored for total period of 14 days 2. Baseline was normal sinus rhythm with average heart of 74 beats per minute 3. No significant pauses noted but episode of second-degree AV block noted x2 at 15:49, no reported symptoms 4. Occasional PACs noted without sustained arrhythmias 5. One 3 beat run of nonsustained VT at 158 beats per minute 6. Patient marked the counter 1 time without any reported symptoms correlating with sinus rhythm MTDD
== END ==
LOC: HO.CARD 12:40
PROVIDERS: PCP Family Medicine; Visit Provider Family Medicine
DX: G45.9 Transient cerebral ischemic attack, unspecified (principal); I63.9 Cerebral infarction, unspecified
CPT/HCPCS: 93246

== ENCOUNTER → 2024-09-18 12:44 | Outpatient (BNV) | payer MEDICARE, SELFPAY | PROVIDERS: PCP Family Medicine; Visit Provider Internal Medicine Cardiovascular Disease | DX: I44.1 Atrioventricular block, second degree (principal) | CPT/HCPCS: 93248 ==

== ENCOUNTER → 2024-10-03 08:00 | Outpatient (BNV) | payer MEDICARE, SELFPAY | PROVIDERS: PCP Family Medicine; Referring Provider Family Medicine; Visit Provider Internal Medicine | DX: D64.9 Anemia, unspecified (principal); Z85.51 Personal history of malignant neoplasm of bladder; Z92.21 Personal history of antineoplastic chemotherapy; N17.9 Acute kidney failure, unspecified | CPT/HCPCS: 99204; G2211 ==

== ENCOUNTER 2025-01-08 08:45 | Outpatient (REF) | payer MEDICARE, SELFPAY ==
[2025-01-08 09:07] LABS: MANUAL DIFF FLAG NO
--- OUTSIDE RECORDS SUMMARY | 2025-01-08 09:15 | XMS_ITS | Clinical Summary ---
Author Organization [facility] Facility Address [address] [address] Care Team Providers Care Aws Consultant Name Role Phone Mary Kate Vance MD Primary Care Provider Allergies No known active allergies Medications simvastatin (ZOCOR) 40 MG tablet 06/12/2022 Active omeprazole (PriLOSEC) [address] capsule Take 20 mg by mouth 02/03/2016 Active lisinopril 10 MG tablet 06/12/2022 Active Multiple Vitamin (multivitamin) tablet Take 1 tablet by mouth 1 (one) time each day Active Active Problems Problem Noted Date Diagnosed Date Chronic kidney disease, stage 2 (mild) 2 Carotid artery stenosis 06/17/2022 Stage 3a chronic kidney disease 06/17/2022 Renal osteodystrophy 06/17/2022 Benign polyp of colon 05/15/2018 Overview (06/17/2022): repeat screning colonoscopy in 2027 Malignant neoplasm of urinary bladder 04/04/2013 Social History Tobacco Use Types Packs/Day Years Used Date Smoking Tobacco: Never Smokeless Tobacco: Never Tobacco Cessation:Counseling Given: Not Answered Alcohol Use Standard Drinks/Week Comments Not Currently 0 (1 standard drink = 0.6 oz pur e alcohol) Sex and Gender Information Value Date Recorded Sex Assigned at Not on file Legal Sex Male 9:24 AM EDT Gender Identity Not on file Sexual Orientation Not on file Last Filed Vital Signs Vital Sign Reading Time Taken Comments Blood Pressure 104/60 09/13/2022 4:02 PM EDT Pulse 58 09/13/2022 4:02 PM EDT Temperature - - Respiratory Rate - - Oxygen Saturation 98% 09/13/2022 4:02 PM EDT Inhaled Oxygen Concentration - - Weight 84.5 kg (186 lb 3.2 oz) 09/13/2022 4:02 P M EDT Height - - Body Mass Index - - Plan of Treatment Health Maintenance Due Date Last Done Comments Pneumococcal Vaccine: 65+ Ye ars (1 of 2 - PCV) 1964 Colorectal Cancer Screening: Annual FOBT 2007 Colorectal Cancer Screening: Colonoscopy 2007 Colorectal Cancer Screening: Sigmoidoscopy 2007 Influenza Vaccine (#1) 2024 Hepatitis B Vaccine Aged Out No longe r eligible based on patient's age to complete this topic Insurance [employer] [facility] AD[facility] PPO ([id number]) [employer] [facility] AD[facility] PPO ([id number]) Care Teams Aws Consultant Relationship Specialty Start Date End Date Mary Kate Vance MD [address] [place] [address] [place] [address] PCP - General Internal Medicine 04/02/22
[2025-01-08 09:16] LABS: Basophils Percent Auto 0.6 % (0-2); Eosinophils Absolute Auto 0.2 X10*3/uL (0.0-0.4); Eosinophils Percent Auto 2.4 % (0-4); Hematocrit 23.4 % (42.0-52.0); Hemoglobin 7.3 g/dl (14.0-18.0); Imm Gran Abs Auto 0.04 X10*3/uL (0.00-0.03); Imm Gran Pct Auto 0.6 % (0.0-0.4); Lymphocytes Absolute Auto 1.2 X10*3/uL (1.2-4.9); Lymphocytes Percent Auto 16.3 % (20-40); Mean Corpuscular HGB Conc 31.2 g/dl (31.0-36.0); Mean Corpuscular Volume 83.3 fL (80.0-98.0); Monocytes Absolute Auto 0.5 X10*3/uL (0.1-1.2); Monocytes Percent Auto 6.5 % (2-11); Neutrophils Absolute Auto 5.2 x10*3/uL (2.0-8.3); Neutrophils Percent Auto 73.6 % (45-73); Platelet Count 307 X10*3/uL (160-400); Red Blood Count 2.81 X10*6/uL (4.60-5.80); Red Cell Distribution Width 14.4 % (11.0-16.0); White Blood Count 7.1 X10*3/uL (4.8-10.8)
[2025-01-08 09:35] LABS: Alanine Aminotransferase 14 U/L (0-40); Alkaline Phosphatase 72 U/L (39-117); Anion Gap 12 (12-20); Aspartate Amino Transferase 21 U/L (5-37); Bilirubin Total 0.3 mg/dL (0.0-1.0); Blood Urea Nitrogen 35 mg/dL (9-16); Calcium 8.7 mg/dL (8.4-10.2); Carbon Dioxide 16 mmol/L (22-29); Chloride 112 mmol/L (96-108); Estimated Glomerular Filt Rate 52; Glucose Random 110 mg/dL (60-115); Potassium 4.9 mmol/L (3.3-5.1); Sodium 135 mmol/L (135-145); Total Protein 7.3 g/dL (6.5-8.0)
[2025-01-08 09:58] LABS: Haptoglobin 196 mg/dL (40-268)
[2025-01-08 10:01] LABS: Lactate Dehydrogenase 173 U/L (118-273)
[2025-01-08 10:02] LABS: Erythrocyte Sedimentation Rate 29 MM/HR (0-15)
[2025-01-10 18:13] LABS: Copper, serum 114 mcg/dL (70-175)
== END 2025-01-08 08:46 | disposition home or self-care (01) ==
LOC: HO.LAB 08:45
PROVIDERS: PCP Family Medicine; Visit Provider Internal Medicine
DX: D64.9 Anemia, unspecified (principal)
CPT/HCPCS: 36415; 80053; 82525; 83010; 83615; 85025; 85652; 86850; 86900; 86901

== ENCOUNTER 2025-01-16 06:48 | Outpatient (REF) | payer MEDICARE, SELFPAY ==
--- OUTSIDE RECORDS SUMMARY | 2025-01-16 06:50 | XMS_ITS | Clinical Summary ---
Author Organization [facility] Facility Address [address] [address] Care Team Providers Care Contractor Field Hauling Name Role Phone Mary Kate Vance MD [...] age to complete this topic Insurance AETNA [facility] ADV PPO ([id number]) [employer]NA [facility] ADV PPO ([id number]) Care Teams Contractor Field Hauling Relationship Specialty Start Date End Date Mary Kate Vance MD [address] [place] [address] [place] [address] PCP - General Internal Medicine 04/02/22
[2025-01-16 07:16] LABS: Hematocrit 26.4 % (42.0-52.0); Hemoglobin 8.6 g/dl (14.0-18.0); Mean Corpuscular HGB Conc 32.6 g/dl (31.0-36.0); Mean Corpuscular Hemoglobin 27.1 pg (27.0-33.0); Mean Corpuscular Volume 83.3 fL (80.0-98.0); Mean Platelet Volume 9.4 fL (9.4-12.4); Platelet Count 313 X10*3/uL (160-400); Red Blood Count 3.17 X10*6/uL (4.60-5.80); Red Cell Distribution Width 14.8 % (11.0-16.0); White Blood Count 8.7 X10*3/uL (4.8-10.8)
== END 2025-01-16 06:49 | disposition home or self-care (01) ==
LOC: HO.LAB 06:48
PROVIDERS: PCP Family Medicine; Visit Provider Internal Medicine
DX: D64.9 Anemia, unspecified (principal)
CPT/HCPCS: 36415; 85027; 86850; 86900; 86901

== ENCOUNTER 2025-02-06 11:15 | Day surgery (SDC) | payer MEDICARE, SELFPAY ==
[2025-02-06] VITALS (16 sets, daily range): BP systolic 123–146; BP diastolic 63–73; PULSE 54–60; RESP 14–19; TEMP 36.4–36.8; O2SAT 100; BMI 29.4
[2025-02-06 12:03] LABS: Prothrombin Time 11.6 SEC (10.9-12.4)
[2025-02-06] MEDS: Midazolam HCl 2 MG/2 ML VIAL 1 MG IVPUSH (13:33)
[2025-02-06] MEDS: fentaNYL citrate/PF 100 MCG/2 ML VIAL 50 MCG IVPUSH (13:33)
[2025-02-06 14:28] LABS: Bone Marrow SEE SEPARATE REPORT
[2025-02-06] MEDS: Lidocaine HCl 1 % MPF 30 ML VIAL 10 ML SUBCUT (14:43)
== END 2025-02-06 15:34 | disposition home or self-care (01) ==
PROVIDERS: Pathology Anatomic Pathology & Clinical Pathology; Radiology Diagnostic Radiology; Student in an Organized Health Care Education/Training Program; PCP Family Medicine; Visit Provider Internal Medicine
PROC: (CPT 38221; principal; 2025-02-06 13:00)
DX: D50.9 Iron deficiency anemia, unspecified (principal); D75.89 Other specified diseases of blood and blood-forming organs; K20.80 Other esophagitis without bleeding; I65.29 Occlusion and stenosis of unspecified carotid artery; E78.00 Pure hypercholesterolemia, unspecified; I10 Essential (primary) hypertension; Z85.51 Personal history of malignant neoplasm of bladder; Z92.21 Personal history of antineoplastic chemotherapy; Z90.6 Acquired absence of other parts of urinary tract; Z86.73 Personal history of transient ischemic attack (TIA), and cerebral infarction without residual deficits; R91.8 Other nonspecific abnormal finding of lung field; Z80.1 Family history of malignant neoplasm of trachea, bronchus and lung; Z79.899 Other long term (current) drug therapy; Z98.890 Other specified postprocedural states
CPT/HCPCS: 36415; 38222; 85610; 88184; 88185; 88237; 88264; 88305; 88311; 88313; 88342; 99152; 99153; J2003; J2250; J2310; J3010

== ENCOUNTER → 2025-02-06 13:10 | Outpatient (BNV) | payer MEDICARE, SELFPAY | PROVIDERS: PCP Family Medicine; Visit Provider Student in an Organized Health Care Education/Training Program | DX: D64.9 Anemia, unspecified (principal) | CPT/HCPCS: 38222; 77012; 99152 ==

== ENCOUNTER 2025-02-19 08:45 | Outpatient (AMB) | payer MEDICARE, SELFPAY ==
--- NOTE | 2025-02-19 08:59 | A.OFFVIS_ITS ---
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 He is a pleasant 64-year-old male significant past medical history including bladder cancer for which she underwent neoadjuvant chemotherapy along with radical cystectomy, currently in remission, recently over the last 4 years has developed significant anemia, recently saw Hematology and was diagnose initially with iron-deficiency anemia and was given iron replacement therapy but remains persistently anemic with normocytic anemia with stabilized iron stores as per the Hematology notes. He underwent a bone marrow recently as per him and said that this was within normal limits. He is waiting to undergo CAT scan. He had an echocardiogram recently which was done for a murmur which showed moderate aortic stenosis with possible bicuspid valve with normal LV systolic function. He had a carotid endarterectomy for 3 TIAs few years ago and currently still follows with vascular surgery at [facility] and is getting updated carotid duplex in near future. He has never had any cardiac issues or history of coronary artery disease. Many years ago he had stress test when he was anemic for exertional shortness of breath and as per him that was negative. However more recently especially when he walks up a hill he feels bilateral arm weakness with pressure in the lower retrosternal epigastric area which stops him from exercising. He then gets weak. Symptoms then subside after few minutes. Never had these symptoms at rest. He drinks about 2-3 beers a day. He has cut down caffeine intake. He is currently not on aspirin therapy due to prior upper endoscopy revealing esophagitis and with iron-deficiency anemia. He is currently on statin therapy with last LDL of 80 mg/dL [facility] Medical History Lung nodules Lab test negative for COVID-19 virus Left inguinal hernia Carotid stenosis Bladder cancer HTN (hypertension) High cholesterol CVA (cerebral vascular accident) TIA (transient ischemic attack) Surgical History H/O hand surgery H/O eye surgery History of bladder surgery History of esophagogastroduodenoscopy (EGD) H/O colonoscopy Hx of total cystectomy S/P carotid endarterectomy Family History Father Dementia Mother Lung cancer Social History Household Members Other:: Ex- Housing: House Do you presently have visiting nurse or other home services: No Comment: minimal discomfort Patient Tobacco Use Status: Never used Tobacco e-Cigarette/Vaping Use: Never Used Second Hand Smoke Exposure: No Advance Directives Date on File: 09/11/20 service: Yes Current occupational status: unemployed and retired Current occupational exposures/hazards: No Cognitive needs: No Hearing needs: No Vision needs: Yes Review of Systems Const Denies chills, Denies daytime sleepiness, Denies fatigue, Denies fever(s), Denies frequent falls, Denies poor appetite, Denies snoring, Denies stops breathing during sleep, Denies weakness, Denies weight gain and Denies weight loss Eyes Denies loss of vision ENT Denies dizziness and Denies hearing loss Card Denies chest pain, Denies claudication, Denies leg edema, Denies lightheadedness, Denies palpitations, Denies dyspnea, Denies dyspnea on exertion and Denies orthopnea Resp Denies cough, Denies excessive phlegm production, Denies dyspnea, Denies dyspnea on exertion, Denies snoring and Denies wheezing GI Denies abdominal pain, Denies hematochezia, Denies change in bowel habits, Denies nausea and Denies vomiting Denies dysuria and Denies urinary frequency Musc Denies arthralgias, Denies muscle weakness, Denies numbness and Denies other (frequent falls) Skin/Breast Denies nail changes and Denies rash Neuro Denies Abnormal speech present, Denies dizziness, Denies frequent falls, Denies loss of vision, Denies memory loss, Denies numbness and Denies weakness Psych Denies depression and Denies memory loss Endo Denies fatigue and Denies palpitations Otto/Lymph Reports easy bruising and Reports other (anemia) Aller/Immun Denies wheezing Physical Exam Vital Signs: Last Vital Signs Pulse 57 02/19/25 09:01 BP 110/64 02/19/25 09:01 BMI result Body Mass Index 27.8 Const General: cooperative, comfortable, no acute distress, well developed, alert, awake and Physically active Nutritional Appearance: average body habitus Orientation/consciousness: patient oriented x3 Limitations: no limitations HEENT Head: Yes normocephalic and Yes atraumatic Neck Neck: Yes trachea midline, Yes supple and Yes no JVD Carotids: delayed carotid upstroke Resp Effort & Inspection: normal respiratory effort Auscultation: clear to auscultation bilaterally Cardio Jugular venous distension: no JVD Rate: regular rate Rhythm: regular rhythm Heart sounds: S1 normal heart sound present, S2 normal heart sound present, no click, no gallops and Murmur heart sound present systolic mid, decrescendo and crescendo GI Auscultation: normal bowel sounds Skin General skin exam: no rashes or lesions noted Neuro General: patient oriented x3 and no focal motor deficits Speech: No Abnormal speech present Extrem General: Yes no clubbing, cyanosis or edema Psych Appearance: grossly normal Office Procedures EKG Details: EKG shows normal sinus rhythm at 57 beats per minute with voltage criteria for LVH [id number], Complete Assessment & Plan Assessment & Plan (1) Exertional chest pain: Code(s): R07.9 - Chest pain, unspecified Category: Medical Plan: Exertional chest discomfort of recent onset in this elderly gentleman with prior history of carotid endarterectomy as well as moderate aortic stenosis and significant anemia. Although symptoms could be related as a combination of find deficiency anemia and moderate aortic stenosis, these symptoms are relatively new and I am highly concerned for underlying obstructive coronary artery disease as a cause of his symptoms. Discussed with him to avoid sudden strenuous exertion. Also advised to keep low-profile for now. Will start him on Toprol 25 mg daily given his heart rate of 57 beats per minute to reduce myocardial oxygen demand. Will like to perform exercise myocardial perfusion imaging as soon as possible. If he develops any rest symptoms he is advised to seek emergency care. Further treatment based on the finding of the stress results. I have sent a message to both Hematology and GI to give me recommendations regarding aspirin therapy which I think is absolutely necessary in his care given his prior vascular disease as well as aortic stenosis. I have advised him to stay off alcohol for now to reduce risk of recurrent gastritis/esophagitis. I would like repeat lipid panel to assess fasting lipids and target goal LDL less than 70 mg/dL or uptitrate his lipid therapy. Blood pressure is currently well optimized advised to continue current therapy. Will follow up in the clinic in 1 week's time, sooner p.r.n.. Thank you for allowing me to partake in his care Orders: Orders CA stress test Today Roberto Javed MD R07.9 - Chest pain, unspecified NM cardiolite stress test 1 Day Roberto Javed MD R07.9 - Chest pain, unspecified Medications: New metoprolol succinate ER (Toprol XL) 25 mg PO DAILY 30 tabs 5RF Roberto Javed MD R07.9 - Chest pain, unspecified Changed From omeprazole 40 mg PO DAILY 8 weeks 56 caps 0RF To omeprazole 40 mg PO DAILY PRN Bony Haskins MD Coding Level of Care Code New Pt Level 4 (39092) Complex EM visit Add On G2211 Diagnoses Exertional chest pain R07.9 CPT Codes EKG - CPT: 71349-[id number], Complete ([id number])
[2025-02-19 09:01] VITALS: BP 110/64; PULSE 57; BMI 27.8
--- OUTSIDE RECORDS SUMMARY | 2025-02-19 09:09 | XMS_ITS | Clinical Summary ---
Author Organization [facility] Facility Address [address] [address] Care Team Providers Care Personnel Quality Assurance Auditor Name Role Phone Mary Kate Vance MD [...] Colorectal Cancer Screening: Sigmoidoscopy 2007 Influenza Vaccine (Season Ended) 2025 Hepatitis B Vaccine Aged Out No longe r eligible based on patient's age to complete this topic Insurance [facility] [facility] AD[facility] PPO ([id number]) [facility] [facility] AD[facility] PPO ([id number]) Care Teams Personnel Quality Assurance Auditor Relationship Specialty Start Date End Date Mary Kate Vance MD [address] [place] [address] [place] [address] PCP - General Internal Medicine 04/02/22
== END 2025-02-19 09:31 | disposition home or self-care (01) ==
LOC: HO.HCS 08:45
PROVIDERS: PCP Family Medicine; Visit Provider Internal Medicine Cardiovascular Disease
DX: R07.9 Chest pain, unspecified (principal)
CPT/HCPCS: 93010; 99214; G2211

== ENCOUNTER → 2025-02-19 08:45 | Outpatient (BNVA) | payer MEDICARE, SELFPAY | PROVIDERS: PCP Family Medicine; Visit Provider Internal Medicine Cardiovascular Disease | DX: R07.9 Chest pain, unspecified (principal); R94.31 Abnormal electrocardiogram [ECG] [EKG]; I51.7 Cardiomegaly | CPT/HCPCS: 93005; 99212 ==

== ENCOUNTER → 2025-02-20 06:39 | Outpatient (REF) | payer MEDICARE, SELFPAY ==
--- NOTE | ~2025-02-20 | NM_ITS ---
EXERCISE MYOCARDIAL PERFUSION STUDY INDICATION: Chest pain TECHNIQUE: The patient was brought in for an exercise perfusion study on 02/20/2025. Patient performed exercise as per Adonis protocol and was injected 30 mCi of sestamibi once target heart rate was achieved. Images were obtained using the SPECT gamma camera interlaced with the gating device. Images were obtained in supine position. Resting perfusion study was performed on 02/21/2025. Patient was administered 30 mCi of sestamibi intravenously at rest. Images were then obtained in supine position. Total DLP 82 mGy-cm. Images were processed with the software and compared side to side in short axis, horizontal long axis and vertical long axis views. FINDINGS: Raw aquisition reviewed. The stress perfusion study showed no significant perfusion abnormality. Both uncorrected as well as CT attenuation corrected images were reviewed. The gated study shows normal LV systolic function with calculated LVEF of 64%. LV cavity is normal in size. The gated study shows normal wall thickening and contraction of segments. Resting study shows no significant perfusion abnormality. Gating at rest reveals normal wall motion with ejection fraction at 57%. The findings are consistent with no clear reversible or fixed perfusion abnormality. NM/NM cardiolite stress test IMPRESSION: 1. Myocardial perfusion imaging study shows probably normal myocardial perfusion. 2. Gated LVEF is 64% during stress and 57% during rest. 3. Transient ischemic dilatation not present. EKG component of the test reported separately. Electronically signed by: Subhash Moore MD 02/21/2025 04:27 PM EDT
--- OUTSIDE RECORDS SUMMARY | 2025-02-20 06:42 | XMS_ITS | Clinical Summary ---
Author Organization [facility] Facility Address [address] [address] Care Team Providers Care Deck Worker Name Role Phone Mary Kate Vance MD [...] age to complete this topic Insurance AETNA [facility] AD[facility] PPO ([id number]) [employer]NA [facility] ADV PPO ([id number]) Care Teams Deck Worker Relationship Specialty Start Date End Date Mary Kate Vance MD [address] [place] [address] [place] [address] PCP - General Internal Medicine 04/02/22
[2025-02-20 08:05] LABS: Cholesterol 126 mg/dL (<200); HDL Cholesterol 54 mg/dL (>40); LDL Cholesterol Calculated 53 mg/dL (<100); Triglycerides 97 mg/dL (<150)
--- NOTE | 2025-02-20 09:43 | CA_ITS ---
Acquisition Time: 2025-02-20 10:19:54 Total Exercise Time: 00:04:25 Test Indications: CP,Suspected Angina Medications: OMEPRAZOLE LISINOPRIL ATORVASTATIN Protocol: SVETA Max HR: 144 BPM 93% of Pred: 154 BPM Max BP: 128/60 mmHG Max Work Load: 4.6 METS Exercise Stress Test with exercise 4 min 25 secs of Sveta Protocol, held at Stage 1, achieving 93% MPHR, with reprots of fatigue and severe SOB, no chest pain, with isolated PVCs, with normotensive response to exercise. With horizontal ST depression in leads V2-V5 meeting criteria for ischemia. In recovery, breathing returned to baseline and ST segment improved. Nuclear images pending. Will set pt up for outpt cardiac catherization next week. Test reviewed with Dr. Moore. Referred By: Roberto Javed Electronically Signed By: Kobe Dietz
== END ==
LOC: HO.CARD 06:39
PROVIDERS: PCP Family Medicine; Visit Provider Internal Medicine Cardiovascular Disease
DX: R07.9 Chest pain, unspecified (principal)
CPT/HCPCS: 36415; 78452; 80061; 93017; A9500

== ENCOUNTER → 2025-02-20 07:22 | Outpatient (RCR) | payer MEDICARE, SELFPAY ==
[2025-01-16 07:08] VITALS: BP 123/77; PULSE 71; RESP 16; TEMP 37.1; O2SAT 99
[2025-01-16] MEDS: Iron Sucrose Complex 200 MG/10 ML VIAL IVPUSH (07:18)
[2025-01-23 07:31] VITALS: BP 99/55; PULSE 58; TEMP 36.7; O2SAT 99
[2025-01-23] MEDS: Iron Sucrose Complex 200 MG/10 ML VIAL IVPUSH (07:42)
[2025-01-23] MEDS: 0.9 % Sodium Chloride Flush 10 ML SYRINGE 5 ML IVFLUSH (07:50)
[2025-01-30 07:22] VITALS: BP 123/57; PULSE 61; RESP 16; TEMP 36.4; O2SAT 100
[2025-01-30] MEDS: Iron Sucrose Complex 200 MG/10 ML VIAL IVPUSH (07:32)
[2025-01-30] MEDS: 0.9 % Sodium Chloride Flush 10 ML SYRINGE 5 ML IVFLUSH (07:38)
[2025-02-06 07:14] VITALS: BP 129/64; PULSE 63; RESP 16; TEMP 36.6; O2SAT 100
[2025-02-06] MEDS: Iron Sucrose Complex 200 MG/10 ML VIAL IVPUSH (07:20)
[2025-02-13 07:17] VITALS: BP 100/58; PULSE 69; RESP 14; TEMP 36.6; O2SAT 100
[2025-02-13] MEDS: Iron Sucrose Complex 200 MG/10 ML VIAL IVPUSH (07:21)
[2025-02-20 07:11] VITALS: BP 116/74; PULSE 63; RESP 16; TEMP 36.6; O2SAT 100
[2025-02-20] MEDS: 0.9 % Sodium Chloride Flush 10 ML SYRINGE 5 ML IVFLUSH (07:16)
[2025-02-20] MEDS: Iron Sucrose Complex 200 MG/10 ML VIAL IVPUSH (07:16)
== END | disposition home or self-care (01) ==
LOC: HO.INF 01-16 07:08
PROVIDERS: Visit Provider Internal Medicine
DX: D64.9 Anemia, unspecified (principal)
CPT/HCPCS: 96374; J1756

== ENCOUNTER → 2025-02-20 09:43 | Outpatient (BNV) | payer MEDICARE, SELFPAY | PROVIDERS: PCP Family Medicine | DX: R07.9 Chest pain, unspecified (principal) | CPT/HCPCS: 78452 ==

== ENCOUNTER 2025-02-21 06:32 | Outpatient (REF) | payer MEDICARE, SELFPAY ==
[2025-02-21 07:20] LABS: Hematocrit 24.4 % (42.0-52.0); Hemoglobin 7.5 g/dl (14.0-18.0); Mean Corpuscular HGB Conc 30.7 g/dl (31.0-36.0); Mean Corpuscular Hemoglobin 28.7 pg (27.0-33.0); Mean Corpuscular Volume 93.5 fL (80.0-98.0); Mean Platelet Volume 9.8 fL (9.4-12.4); Platelet Count 322 X10*3/uL (160-400); Red Blood Count 2.61 X10*6/uL (4.60-5.80); Red Cell Distribution Width 18.5 % (11.0-16.0); White Blood Count 6.4 X10*3/uL (4.8-10.8)
[2025-02-21 07:37] LABS: INTERNATIONAL NORM RATIO 0.9 (0.9-1.1); Prothrombin Time 10.5 SEC (10.9-12.4)
[2025-02-21 07:45] LABS: Anion Gap 11 (12-20); Blood Urea Nitrogen 42 mg/dL (9-16); Calcium 8.9 mg/dL (8.4-10.2); Carbon Dioxide 19 mmol/L (22-29); Chloride 114 mmol/L (96-108); Estimated Glomerular Filt Rate 51; Glucose Random 93 mg/dL (60-115); Sodium 139 mmol/L (135-145)
== END 2025-02-21 06:33 | disposition home or self-care (01) ==
LOC: HO.LAB 06:32
PROVIDERS: PCP Family Medicine
DX: R07.9 Chest pain, unspecified (principal)
CPT/HCPCS: 36415; 80048; 85027; 85610

== ENCOUNTER → 2025-02-26 23:59 | Outpatient (BNV) | payer MEDICARE, SELFPAY | PROVIDERS: PCP Nurse Practitioner Family; Visit Provider Internal Medicine Cardiovascular Disease | DX: I50.30 Unspecified diastolic (congestive) heart failure (principal) | CPT/HCPCS: 93458; 99152 ==

== ENCOUNTER 2025-03-13 11:11 | Outpatient (REF) | payer MEDICARE, SELFPAY ==
--- NOTE | ~2025-03-13 | CT_ITS ---
CLINICAL HISTORY: History of lung nodules, bladder cancer CT chest without contrast Comparison: None Findings: No cardiomegaly. Moderate diffuse atherosclerotic disease of the coronary arteries. No mediastinal adenopathy or pericardial effusion. No discrete thyroid lesion. No suspicious pulmonary nodule. Few tiny calcified granuloma suggested. No effusion. No pneumothorax. Minimal airway thickening. The visualized upper abdomen demonstrates no acute process. No acute osseous abnormality. Impression: No suspicious pulmonary nodules. This document has been electronically signed by: Taco Davis MD on 03/14/2025 09:51:05
--- NOTE | ~2025-03-13 | CT_ITS ---
CLINICAL HISTORY: Worsening anemia, history of bladder cancer CT abdomen and pelvis without contrast Comparison: None Findings: The lung bases are clear. The liver, gallbladder, spleen, adrenal glands and pancreas are unremarkable. Bilateral renal cortical and peripelvic cysts. No suspicious lesion or obstructive uropathy. Reference axial images 68-73, there is asymmetric bladder wall thickening along the right lateral bladder base, nonspecific. No bowel obstruction. Patent small-bowel bowel anastomosis midline. No free air, free fluid, abscess or adenopathy. Normal appendix. No retroperitoneal or intraperitoneal hematoma. Severe atherosclerotic disease. Moderate fat containing left inguinal hernia. No acute osseous finding. Impression: Asymmetric right-sided bladder wall thickening without comparison imaging. Given the patient history of bladder cancer, correlation is recommended. Several incidental findings. This document has been electronically signed by: Taco Davis MD on 03/14/2025 09:40:03
--- OUTSIDE RECORDS SUMMARY | 2025-03-13 13:30 | XMS_ITS | Clinical Summary ---
Author Organization [facility] Facility Address [address] [address] Care Team Providers Care Lubrication Supervisor Name Role Phone Mary Kate Vance MD [...] Due Date Last Done Comments Pneumococcal Vaccine: 50+ Ye ars (1 of 2 - PCV) 1977 Colorectal Cancer Screening: Annual FOBT 2007 Colorectal Cancer Screening: Colonoscopy 2007 Colorectal Cancer Screening: Sigmoidoscopy 2007 Influenza Vaccine (Season Ended) 2025 Hepatitis B Vaccine Aged Out No longe r eligible based on patient's age to complete this topic Insurance Aetna [facility] Adv PPO ([id number]) Aetna [facility] Adv PPO ([id number]) Care Teams Lubrication Supervisor Relationship Specialty Start Date End Date Mary Kate Vance MD [address] [place] [address] [place] [address] PCP - General Internal Medicine 04/02/22
== END 2025-03-13 11:12 | disposition home or self-care (01) ==
LOC: HO.CT 11:11
PROVIDERS: PCP Nurse Practitioner Family; Visit Provider Internal Medicine
DX: N18.9 Chronic kidney disease, unspecified (principal); Z85.51 Personal history of malignant neoplasm of bladder
CPT/HCPCS: 71250; 74176

== ENCOUNTER → 2025-03-13 11:13 | Outpatient (BNV) | payer MEDICARE, SELFPAY | PROVIDERS: PCP Nurse Practitioner Family; Visit Provider Radiology Vascular & Interventional Radiology | DX: N32.89 Other specified disorders of bladder (principal); Z87.09 Personal history of other diseases of the respiratory system; Z85.51 Personal history of malignant neoplasm of bladder | CPT/HCPCS: 71250; 74176 ==

== ENCOUNTER 2025-03-14 09:15 | Outpatient (AMB) | payer MEDICARE, SELFPAY ==
[2025-03-14 09:34] VITALS: BP 114/62; PULSE 51
--- NOTE | 2025-03-14 09:34 | MHC.OFFVIS ---
Vital Signs 03/14/25 09:34 Height 5 ft 7 in Weight 191 lb 12.835 oz BMI 30.0 BP 114/62 Blood Pressure Location Rt brachial Position Sitting Pulse 51 Pulse Source Monitor Intake Visit Reasons: Follow up post cardiac cath Mine Safety Engineer Required: No Allergies No Known Allergies Allergy (Verified 03/14/25 09:36) Medication List - Last Reconciled 03/14/25 by Barb Sosa, CANCER RESEARCHER-C aspirin (Adult Aspirin Regimen) 81 mg PO DAILY atorvastatin 40 mg PO DAILY 90 days ferrous sulfate 325 mg PO BID [Iron (ferrous sulfate) 325 mg IV QWEEK] lisinopril 10 mg PO DAILY metoprolol succinate ER (Toprol XL) 25 mg PO DAILY omeprazole 40 mg PO DAILY PRN HPI HPI Follow up post cardiac cath: Details: Live is a 64-year-old male past medical history of hypertension, hyperlipidemia, carotid stenosis status post endarterectomy, aortic stenosis who recently reported exertional shortness of breath, fatigue and arm heaviness. He underwent cardiac evaluation including cardiac catheterization showing normal coronary arteries. He was found to have significant anemia which was thought to be the cause of his symptoms. He is still undergoing further evaluation for this. Today he reports that his symptoms are currently a little better than what was previously reported. He still has some shortness of breath and fatigue with exertional activities. He has been doing only light activity. He denies true chest discomfort. No heart palpitations, lightheadedness, presyncope, syncope. He is taking his medications as directed. His right radial catheterization site feels good. [facility] Medical History Lung nodules Lab test negative for COVID-19 virus Left inguinal hernia Carotid stenosis Bladder cancer HTN (hypertension) High cholesterol CVA (cerebral vascular accident) TIA (transient ischemic attack) Surgical History (Updated 03/14/25 @ 13:31 by Barb Sosa, ROSA M-C) History of cardiac cath H/O hand surgery H/O eye surgery History of bladder surgery History of esophagogastroduodenoscopy (EGD) H/O colonoscopy Hx of total cystectomy S/P carotid endarterectomy Family History Father Dementia Mother Lung cancer Social History Household Members Other:: Ex- Housing: House Do you presently have visiting nurse or other home services: No Comment: minimal discomfort Patient Tobacco Use Status: Never used Tobacco e-Cigarette/Vaping Use: Never Used Second Hand Smoke Exposure: No Advance Directives Date on File: 09/11/20 service: Yes Current occupational status: unemployed and retired Current occupational exposures/hazards: No Cognitive needs: No Hearing needs: No Vision needs: Yes Review of Systems Const All systems reviewed & are unremarkable except as noted in HPI and below ENT Denies dizziness Card Denies chest pain, Denies chest pain at rest, Denies chest pain with activity, Denies rapid heart rate, Denies pedal edema, Denies edema, Denies leg edema, Denies lightheadedness, Denies palpitations, Denies dyspnea, Denies dyspnea on exertion and Denies orthopnea Resp Denies cough, Denies dyspnea and Denies dyspnea on exertion GI Denies hematochezia and Denies change in stool character Musc Denies abnormal gait, Denies limited range of motion, Denies muscle cramps, Denies muscle weakness, Denies numbness, Denies radiating pain into limb, Denies stiffness and Denies tingling Neuro Denies abnormal gait, Denies dizziness, Denies numbness and Denies tingling Endo Denies palpitations Physical Exam Vital Signs: Last Vital Signs Pulse 51 03/14/25 09:34 BP 114/62 03/14/25 09:34 BMI result Body Mass Index 30.0 Const General: cooperative, healthy appearing, comfortable and no acute distress Orientation/consciousness: patient oriented x3 Neck Neck: Yes normal visual inspection and Yes no JVD Resp Effort & Inspection: normal respiratory effort Auscultation: clear to auscultation bilaterally, no rales, no rhonchi and no wheezes Cardio Rate: regular rate Rhythm: regular rhythm Heart sounds: S1 normal heart sound present, S2 normal heart sound present, no gallops, no murmurs and no rubs Neuro General: patient oriented x3 Extrem General: Yes normal to inspection, No no pedal edema and No calf tenderness Psych Appearance: grossly normal Mental Status: mental status grossly normal Speech and movement: Normal speech and movement present Office Procedures EKG Details: Today, read by me, sinus bradycardia with first-degree AV block, voltage criteria for left ventricular hypertrophy, rate 51, QTC 394 millisecond [id number], Complete Assessment & Plan Assessment & Plan (1) Exertional chest pain: Code(s): R07.9 - Chest pain, unspecified Category: Medical Plan: Cardiac evaluation for exertional shortness of breath, fatigue and arm heaviness. He underwent exercise nuclear stress test on 02/20/2025 with significant shortness of breath after 4 minutes of exercise with EKG changes and normal myocardial perfusion imaging. A cardiac catheterization was done on 02/26/2025 showing normal coronary arteries. He was found to have significant anemia which was like the the cause of his symptoms. He is now being followed by Hematology. Test results reviewed with him in detail. Continue with risk factor modification. (2) Abnormal stress test: Code(s): R94.39 - Abnormal result of other cardiovascular function study Category: Medical Plan: As above (3) History of cardiac cath: Comment: 02/26/2025, normal coronary arteries Code(s): Z98.890 - Other specified postprocedural states Category: Surgical Plan: Right radial catheterization site well healed (4) Aortic stenosis: Code(s): I35.0 - Nonrheumatic aortic (valve) stenosis Category: Medical Plan: Known history of aortic stenosis. Last echocardiogram 08/29/2024 showing EF 60-65%, mild LVH, moderate aortic stenosis, possible bicuspid valve, ascending aorta 3.8 cm. Heart murmur noted on examination. Will plan for repeat echocardiogram prior to next visit. Cardiology follow-up 6 months, sooner if needed. (5) HTN (hypertension): Code(s): I10 - Essential (primary) hypertension Category: Medical Plan: Blood pressure goal less than 130/80, well controlled at this time. No med changes made (6) Anemia: Code(s): D64.9 - Anemia, unspecified Category: Medical Plan: Symptomatic anemia. Now following with hematology. Labs 03/08/2025 showed hematocrit 29. Plan Time spent on chart review, documentation, interview and assessment Orders: Orders CA echo transthoracic complete 08/19/25 I35.0 - Nonrheumatic aortic (valve) stenosis Patient Instructions: - Stop taking metoprolol as instructed - Continue lisinopril and aspirin as previously prescribed - Monitor for symptoms: increased shortness of breath, chest pain, or dizziness - Schedule follow-up echocardiogram before the next visit - Notify us of any changes or concerns regarding symptoms - Regularly monitor blood pressure and report any unusual findings Coding Level of Care Code Est Pt Level 4 (56759) Complex EM visit Add On G2211 Diagnoses Exertional chest pain R07.9 Abnormal stress test R94.39 History of cardiac cath Z98.890 Aortic stenosis I35.0 HTN (hypertension) I10 Anemia D64.9 CPT Codes EKG - CPT: 33550-[id number], Complete ([id number])
--- OUTSIDE RECORDS SUMMARY | 2025-03-14 10:02 | XMS_ITS | Clinical Summary ---
Author Organization [facility] Facility Address [address] [address] Care Team Providers Care Ophthalmic Surgeon Name Role Phone Mary Kate Vance MD [...] age to complete this topic Insurance Aetna [facility] Adv PPO ([id number]) [employer] [facility] Adv PPO ([id number]) Care Teams Ophthalmic Surgeon Relationship Specialty Start Date End Date Mary Kate Vance MD [address] [place] [address] [place] [address] PCP - General Internal Medicine 04/02/22
== END 2025-03-14 10:07 | disposition home or self-care (01) ==
LOC: HO.HCS 09:16
PROVIDERS: PCP Family Medicine; Visit Provider Nurse Practitioner Family
DX: R07.9 Chest pain, unspecified (principal); R94.39 Abnormal result of other cardiovascular function study; Z98.890 Other specified postprocedural states; I35.0 Nonrheumatic aortic (valve) stenosis; I10 Essential (primary) hypertension; D64.9 Anemia, unspecified
CPT/HCPCS: 93010; 99214; G2211

== ENCOUNTER → 2025-03-14 09:15 | Outpatient (BNVA) | payer MEDICARE, SELFPAY | PROVIDERS: PCP Family Medicine; Visit Provider Nurse Practitioner Family | DX: R94.39 Abnormal result of other cardiovascular function study (principal); R07.9 Chest pain, unspecified; I35.0 Nonrheumatic aortic (valve) stenosis; I10 Essential (primary) hypertension; D64.9 Anemia, unspecified; Z98.890 Other specified postprocedural states | CPT/HCPCS: 93005; 99212 ==

== ENCOUNTER → 2025-08-19 07:45 | Outpatient (REF) | payer MEDICARE, SELFPAY ==
--- OUTSIDE RECORDS SUMMARY | 2025-08-19 07:47 | XMS_ITS | Clinical Summary ---
Author Organization [facility] Facility Address [address] [address] Care Team Providers Care Neurology Technician Name Role Phone Mary Kate Vance MD [...] Cancer Screening: Sigmoidoscopy 2007 Influenza Vaccine (#1) 2025 Hepatitis B Vaccine Aged Out No longe r eligible based on patient's age to complete this topic Insurance Aetna [facility] Adv PPO ([id number]) Aetna [facility] Adv PPO ([id number]) Care Teams Neurology Technician Relationship Specialty Start Date End Date Mary Kate Vance MD [address] [place] [address] [place] [address] PCP - General Internal Medicine 04/02/22
--- OUTSIDE RECORDS SUMMARY | 2025-08-19 07:47 | XMS_ITS | Clinical Summary ---
Author Organization [facility] Address [address] [place] [address] [place] [address] Phone Care Team Providers Care Ocular Care Technologist Name Role Phone Eleno Haq NP Primary Care Provider + Social History Tobacco Use Types Packs/Day Years Used Date Smoking Tobacco: Never Assessed Education Answer Date Recorded Are you interested in more education? Not on ryan e 03/14/2025 Are you concerned about learning? Not on file 03/14/2025 No 03/14/2025 No 03/14/2025 Digital Access Answer Date Recorded No 03/14/2025 No 03/14/2025 Reliable internet access at home? Not on file 03/14/2025 Device with a working camera? Not on file Sex and Gender Information Value Date Recorded Sex Assigned at Not on file Legal Sex Male 4:02 PM EDT Gender Identity Not on file Sexual Orientation Not on file Plan of Treatment Not on file Medical Devices Not on file Insurance [employer] PPO MEDICARE REPLACEMENT AETNA O MEDICARE REPLACEMENT AETNA O MEDICARE REPLACEMENT AETNA O MEDICARE REPLACEMENT AETNA [facility] MEDICARE REPLACEMENT AETNA [facility] MEDICARE REPLACEMENT Care Teams Ocular Care Technologist Relationship Specialty Start Date End Date Eleno Haq NP [address] [place] [address] PCP - General Nurse Practitioner 03/14/25 Additional Source Comments The information contained in this document represents components of the legal health record. It is not the complete legal health record.[facility]
--- NOTE | 2025-08-19 07:48 | CA_ITS ---
Transthoracic Echocardiogram Patient (Last, First, Middle): Live Farah R Gender: M Date of : 1960 Age: 64 Procedure Date: 08/19/2025 Procedure Type: Transthoracic Echocardiogram Location: OP Height: 172.72 cm Weight: 83.92 kg BSA: 1.98 m2 Heart Rate: 68 bpm BP: 122 / 70 mmHg Department Clinician: SB Referring MD: Barb Sosa PETROLEUM REFINERY OPERATORMario Symptoms: I35.0 - Nonrheumatic aortic (valve) stenosis Study Quality: Adequate ECG Rhythm: Sinus Conclusions: - The left ventricular systolic function is normal. The calculated ejection fraction is 66% by biplane method. - Qmqk-ob-safzqcoh concentric left ventricular hypertrophy. - There is a bicuspid aortic valve. There is moderate calcification of the aortic valve. There is moderate aortic valve stenosis. - There is mild dilatation of the ascending aorta measuring 4.00 cm. Findings Left Ventricle Normal left ventricular cavity size. The left ventricular systolic function is normal. The calculated ejection fraction is 66% by biplane method. There is no evidence of regional wall motion abnormalities. Diastolic function is normal for age. [id number] concentric left ventricular hypertrophy. Right Ventricle Normal right ventricular cavity size. There is low normal right ventricular systolic function. Atria Both atria are normal in size. Aortic Valve There is a bicuspid aortic valve. There is moderate calcification of the aortic valve. There is moderate aortic valve stenosis. The mean gradient is 25 mmHg. The aortic valve area is 1.31 cm2. There is no aortic valve regurgitation. Left and right coronary cusps are fused. Mitral Valve The mitral valve appears normal. There is no mitral valve regurgitation. There is no mitral valve stenosis. Pulmonic Valve There is trace pulmonic valve regurgitation. Tricuspid Valve Normal tricuspid valve structure. There is trace tricuspid valve regurgitation. There is no evidence of pulmonary hypertension. Great Vessels There is mild dilatation of the ascending aorta measuring 4.00 cm. Venous The inferior vena cava is normal in size and collapses greater than 50% with inspiration. Pericardium/Pleural There is no evidence of pericardial effusion. Prior Study Comparison Changes noted compared to prior study dated: 08/29/2024. Slight increase in ascending aortic size. Measurements 2D Linear Measurements IVSd: 1.31 0.6-0.9/0.6-1.0 cm LVIDd: 5.10 3.9-5.3/4.2-5.9 cm LVIDd Index: 2.58 2.4-3.2/2.2-3.1 cm/m2 LVIDs: 2.79 2.0-3.6 cm LVPWd: 1.20 0.7-1.1 cm LA Diam: 4.30 2.7-3.8/3.0-4.0 cm LAIDs Index: 2.17 1.5-2.3 cm/m2 LV Mass: 320.38 67-162/88-224 g LV Mass Index: 161.81 43-95/49-115 g/m2 LVOT Diam: 2.40 3.0+(-)1.3 cm 2D Systolic Function EF 4C: 68.30 >55% EF 2C: 60.50 >55% EF BiP: 66.00 >55% Mitral Valve MV Pk E: 0.71 MV PK A: 0.78 MV Decel Time: 250.00 E/A: 0.90 E'Lateral: 6.42 E'Medial: 6.42 E/E' Med: 11.10 E/E' Lat: 11.10 PHT: 73.00 MVA PHT: 3.01 Decel Mcduffie: 2.84 Aortic Valve AoV Pk Tyrone: 3.51 AoV Mn Tyrone: 2.30 AoV VTI: 0.76 AoV Pk Grad: 49.00 Aov Mn Grad: 25.00 CHANDLER Cont.VTI: 1.31 LVOT LVOT Pk Tyrone: 0.94 LVOT Mn Tyrone: 0.66 LVOT VTI: 0.22 LVOT Pk Grad: 4.00 LVOT Mn Grad: 2.00 LVOT Diam: 2.40 LVOT Area: 4.52 Diastolic Function MV Pk E: 0.71 MV Pk A: 0.78 E/A: 0.90 E'Medial: 6.42 E/E' Med: 11.10 E' Laterial: 6.42 E/E' Lat: 11.10 Right Ventricle TAPSE (mm): 20.30 TVS' Tyrone: 9.68 Tricuspid Valve TR Pk Tyrone: 2.30 TR Pk Grad: 21.00 RA Press: 3.00 RVSP: 24.00 Great Vessels Aorta Sinus of Valsalva: 3.60 2.0-3.5 cm Ao Asc: 4.00 2.1-3.4 cm Ao Arch: 3.30 Pulmonary Veins Pulm Vein S/D 2.00 Pulmonary Valve PV Pk Tyrone: 1.53 Peak PV Grad: 9.00 MD Pk Tyrone: 1.57 Updated in Other Vendor System with Status of Final Subhash Moore MD electronically signed on 08/19/2025 12:28:39 PM with status of Final
== END ==
LOC: HO.CARD 07:45
PROVIDERS: PCP Family Medicine; Visit Provider Nurse Practitioner Family
DX: I35.0 Nonrheumatic aortic (valve) stenosis (principal)
CPT/HCPCS: 93306

== ENCOUNTER → 2025-08-19 07:48 | Outpatient (BNV) | payer MEDICARE, SELFPAY | PROVIDERS: PCP Family Medicine; Visit Provider Internal Medicine | DX: Q23.81 Bicuspid aortic valve (principal); I35.0 Nonrheumatic aortic (valve) stenosis; I51.7 Cardiomegaly | CPT/HCPCS: 93306 ==